=== PATIENT | female | born 1980 | race Caucasian/White ===

== ENCOUNTER 2017-01-14 06:30 | Emergency (ER) | payer MEDICARE ==
[~2017-01-14] VITALS: Ht 170.2 cm; Wt 62.3 kg
[2017-01-14 06:35] VITALS: BP 125/85; PULSE 104; RESP 16; TEMP 98.3; O2SAT 97
[2017-01-14] MEDS ORDERED: CLON1TAB PO (07:03)
[2017-01-14] MEDS ORDERED: MORP1TAB25 PO (07:03)
[2017-01-14] MEDS ORDERED: OXYC30TA PO (07:03)
[2017-01-14] MEDS ORDERED: BENA25CA4 PO (07:33)
[2017-01-14] MEDS ORDERED: IVER5TAB PO (07:33)
[2017-01-14] MEDS ORDERED: PERM5CRE11 TOPICAL (07:33)
--- NOTE | 2017-01-14 07:33 | PD ---
HPI Chief Complaint: Skin Problem Time Seen by Provider: 07:22 Travel History International Travel<30 days: No Contact w/Intl Traveler<30days: No Traveled to known affect area: No History of Present Illness HPI 36-year-old female patient presents to the ER today, states that 3 days ago she had stayed at [address] for a constitution party and after that she started having multiple areas of itching, thinks that she sees worms coming out of them. She has excoriations all over her body. They're mostly concentrated on the legs and arms. She denies any trouble breathing, or any other issues. She thinks that her housemates has also had some similar issues. She tries to show me "worms" on the paper towels but I am not able to see any. Modifying Factors: None Associated Signs & Symptoms: Itching all over the body, questionable worms Risk Factors: None PFSH Past Medical History Tetanus Vaccination: Unknown Influenza Vaccination: No ?: Not LMP: 01/10/2017 Social History Alcohol Use: Yes (Socially) Tobacco Use: Yes (1ppd) Substance Use: Yes ("ICE" 2-3 days ago) Allergies-Medications (Allergen,Severity, Reaction): Coded Allergies: No Known Allergies (Unverified , 01/14/17) Reported Meds & Prescriptions Reported Meds & Active Scripts Active Reported Morphine ER (Morphine Sulfate) 30 Mg Tab 30 Mg PO Q8H Oxycodone (Oxycodone HCl) 30 Mg Tab 30 Mg PO Q6H PRN Clonazepam 1 Mg Tab 1 Mg PO TID Review of Systems Except as stated in HPI: all other systems reviewed are Neg Physical Exam Narrative GENERAL: Well-developed white female patient in mild distress. Awake and oriented 3. SKIN: Focused skin assessment warm/dry. Multiple areas of excoriations with scabbing of the arms and legs. HEAD: Atraumatic. Normocephalic. EYES: Pupils equal and round. No scleral icterus. No injection or drainage. ENT: No nasal bleeding or discharge. Mucous membranes pink and moist. NECK: Trachea midline. No JVD. CARDIOVASCULAR: Regular rate and rhythm. No murmur appreciated. RESPIRATORY: No accessory muscle use. Clear to auscultation. Breath sounds equal bilaterally. GASTROINTESTINAL: Abdomen soft, non-tender, nondistended. Hepatic and splenic margins not palpable. MUSCULOSKELETAL: No obvious deformities. No clubbing. No cyanosis. No edema. NEUROLOGICAL: Awake and alert. No obvious cranial nerve deficits. Motor grossly within normal limits. Normal speech. PSYCHIATRIC: Appropriate mood and affect; insight and judgment normal. Data Data Last Documented VS Vital Signs Date Time Temp Pulse Resp B/P Pulse Ox O2 Delivery O2 Flow Rate FiO2 01/14/17 06:35 98.3 104 16 125/85 97 MDM Medical Decision Making Medical Screen Exam Complete: Yes Emergency Medical Condition: Yes Medical Record Reviewed: Yes Differential Diagnosis Rash, itchinessscabies versus parasitic skin infections versus methamphetamine related side effects Narrative Course At this point, considering the history, it is quite possible she may have some underlying scabies and my plan would be to treat her for that. Patient states that she had pulled out some kind of white worm from under her skin. I will also treat her with antiparasitic medications and symptomatically relief for itchiness. We will have her follow-up with primary care physician. Return for any worsening in symptoms as needed. The plan has been discussed with the patient and she states understanding. Diagnosis Primary Impression: Scabies Med/Other Pt SpecificInfo: Prescription(s) given Scripts Ivermectin 3 Mg Tab12 Mg PO ONCE #1 Prov:Bro Pereyra MD 01/14/17 Diphenhydramine HCl (Benadryl Allergy)25 Mg Cap25 Mg PO Q6HR PRN (ITCHING) #30 Prov:Bro Pereyra MD 01/14/17 Permethrin Topical (Elimite Topical)5% Cream1 Applic TOPICAL ONCE #1 TUBE Ref 0 Prov:Bro Pereyra MD 01/14/17 Disposition: 01 DISCHARGE HOME Condition: Stable Bro Pereyra MD Jan 14, 2017 07:33
[2017-01-14] MEDS ORDERED: BACT800T5 PO (07:51)
== END 2017-01-14 08:10 | disposition home or self-care (01) ==
LOC: PHED 06:30
DX: B86 Scabies (principal); F17.210 Nicotine dependence, cigarettes, uncomplicated
CPT/HCPCS: 99284

== ENCOUNTER 2017-01-14 18:44 | Observation (INO) | payer MEDICARE ==
[~2017-01-14] VITALS: Ht 170.2 cm; Wt 62.3 kg
[~2017-01-14 18:44] MED LIST: BACT800T5 PO; BENA25CA4 PO; CLON1TAB PO; IVER5TAB PO; MORP1TAB25 PO; OXYC30TA PO; PERM5CRE11 TOPICAL
[2017-01-14 19:01] VITALS: BP 139/85; PULSE 121; RESP 16; TEMP 98.2; O2SAT 100
[2017-01-14] MEDS ORDERED: SODIUM CHLORIDE 0.9% FLUSH 10 ML FLUSH IVF PRN ×2 (19:30→23:45)
[2017-01-14 19:34] VITALS: BP 120/80; PULSE 107; RESP 18; O2SAT 100
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
--- NOTE | 2017-01-14 20:12 | RADHPO ---
EXAM DATE/TIME: 01/14/2017 19:43 [facility] COMPARISON: No previous studies available for comparison. INDICATIONS : Chest pain. MEDICAL HISTORY : None. SURGICAL HISTORY : None. ENCOUNTER: Initial ACUITY: 1 day PAIN SCORE: 2/10 LOCATION: Bilateral chest FINDINGS: A single view of the chest demonstrates the lungs to be symmetrically aerated without evidence of mas s, infiltrate or effusion. The cardiomediastinal contours are unremarkable. Osseous structures are intact. CONCLUSION: No evidence of acute cardiopulmonary disease. Shahid Maradiaga MD on January 14, 2017 at 20:10 Board Certified Radiologist. This report was verified electronically.
[2017-01-14 21:20] LABS: BASOPHIL # 0.1 TH/MM3 (0-0.2); BASOPHIL % 1.7 % (0.0-2.0); EOSINOPHIL # 0.1 TH/MM3 (0-0.4); EOSINOPHIL % 1.1 % (0.0-4.0); HEMATOCRIT 38.6 % (35.0-46.0); HEMO FLAGS DIFF FINAL; LYMPH % 35.8 % (9.0-44.0); LYMPHOCYTE # 2.7 TH/MM3 (1.0-4.8); MEAN CORPUSCULAR HEMOGLOBIN 29.9 PG (27.0-34.0); MEAN CORPUSCULAR HGB CONC 33.2 % (32.0-36.0); MONO % 7.9 % (0.0-8.0); NEUT % 53.5 % (16.0-70.0); PLATELET COUNT 254 TH/MM3 (150-450); RED BLOOD COUNT 4.29 MIL/MM3 (4.00-5.30); RED CELL DISTRIBUTION WIDTH 14.7 % (11.6-17.2); WHITE BLOOD COUNT 7.5 TH/MM3 (4.0-11.0)
[2017-01-14 21:34] LABS: APTT (PATIENT) 24.3 SEC (24.3-30.1); PROTHROMBIN TIME - PATIENT 11.4 SEC (9.8-11.6)
[2017-01-14 21:39] VITALS: BP 113/70; PULSE 92; RESP 18; O2SAT 98
[2017-01-14 21:44] VITALS: BP 113/70; PULSE 92; RESP 18; O2SAT 100
[2017-01-14 21:45] LABS: BARBITURATES, URINE NEG (NEG)
[2017-01-14 21:54] LABS: AMPHETAMINE, URINE POS (NEG)
[2017-01-14 21:55] LABS: COCAINE, URINE POS (NEG)
[2017-01-14 22:06] LABS: ALKALINE PHOSPHATASE 92 U/L (45-117); ALT (GPT) 27 U/L (10-53); ANION GAP 9 MEQ/L (5-15); AST (GOT) 21 U/L (15-37); BETA HCG QUANT LESS THAN 1 MIU/ML (0-5); BICARBONATE 25.4 MEQ/L (21.0-32.0); BLOOD UREA NITROGEN 12 MG/DL (7-18); CHLORIDE 108 MEQ/L (98-107); GLOMERULAR FILTRATION RATE 62 ML/MIN (>89); SODIUM (NA) 142 MEQ/L (136-145); TOTAL BILIRUBIN ADULT 0.4 MG/DL (0.2-1.0)
[2017-01-14 22:08] LABS: POTASSIUM 2.8 MEQ/L (3.5-5.1)
[2017-01-14] MEDS ORDERED: POTASSIUM CHLOR 10 MEQ PREMIX 100 ML IV ONE (22:15)
[2017-01-14] MEDS ORDERED: SODIUM CHLORID 0.9% 500 ML INJ 500 ML IV ONE (22:15)
[2017-01-14] MEDS ORDERED: POTASSIUM CHLORIDE 20 MEQ CONTROLLED RELEASE TAB PO ONE (22:15)
[2017-01-14] MEDS ORDERED: KETOROLAC TROMETHAMINE 30 MG/ML (IVP) VIAL IV PUSH ONE (22:15)
[2017-01-14] MEDS ORDERED: ASPIRIN 81 MG CHEW TAB CHEW ONE (22:45)
[2017-01-14 23:20] VITALS: BP 118/75; PULSE 91; RESP 18; O2SAT 100
[2017-01-14 23:50] VITALS: O2SAT 99
--- NOTE | 2017-01-15 00:02 | PD ---
Physical Exam Date Seen by Provider: Jan 14, 2017 Time Seen by Provider: 23:52 Narrative Accepted in transfer of care from [place] GENERAL: Well-developed well-nourished female in no acute distress no respiratory distress SKIN: Warm and dry. Diffuse various aged track gibbs and pustules or papules with and without scabbing. Excoriations. HEAD: Normocephalic. EYES: No scleral icterus. No injection or drainage. NECK: Supple, trachea midline. No JVD or lymphadenopathy. CARDIOVASCULAR: Regular rate and rhythm without murmurs, gallops, or rubs. No murmur to auscultation. RESPIRATORY: Breath sounds equal bilaterally. No accessory muscle use. GASTROINTESTINAL: Abdomen soft, non-tender, nondistended. MUSCULOSKELETAL: No cyanosis, or edema. BACK: Nontender without obvious deformity. No CVA tenderness. Data Data Last Documented VS Vital Signs Date Time Temp Pulse Resp B/P Pulse Ox O2 Delivery O2 Flow Rate FiO2 01/14/17 21:44 92 18 113/70 100 Room Air 01/14/17 19:01 98.2 Orders Electrocardiogram (01/14/17 19:23) Complete Blood Count With Diff (01/14/17 19:23) Comprehensive Metabolic Panel (01/14/17 19:23) Prothrombin Time / Inr (Pt) (01/14/17 19:23) Act Partial Throm Time (Ptt) (01/14/17 19:23) Troponin I (01/14/17 19:23) Chest, Single Ap (01/14/17 19:23) Ecg Monitoring (01/14/17 19:23) Bilateral Bp Monitoring (01/14/17 19:23) Iv Access Insert/Monitor (01/14/17 19:23) Oximetry (01/14/17 19:23) Sodium Chloride 0.9% Flush (Ns Flush) (01/14/17 19:30) Drug Screen, Random Urine (01/14/17 19:23) Ed Urine Pregnancytest Poc (01/14/17 19:23) Beta Hcg (Quant/Titer) (01/14/17 19:23) Potassium Chloride (Kcl) (01/14/17 22:15) Potassium Chlor 10 Meq Premix (Kcl 10 Me (01/14/17 22:15) Ketorolac Inj (Toradol Inj) (01/14/17 22:15) Sodium Chlorid 0.9% 500 Ml Inj (Ns 500 M (01/14/17 22:15) Aspirin Chew (Aspirin Chew) (01/14/17 22:45) Admit Order (Ed Use Only) (01/14/17 ) ^ Saline Lock (01/14/17 23:45) Resp Oxygen Aftab C Titrat 1-4 L (01/14/17 ) Notify Dr: Other (01/14/17 23:45) Sodium Chloride 0.9% Flush (Ns Flush) (01/15/17 09:00) Sodium Chloride 0.9% Flush (Ns Flush) (01/14/17 23:45) Labs Laboratory Tests Test 01/14/17 01/14/17 21:00 21:20 White Blood Count 7.5 TH/MM3 Red Blood Count 4.29 MIL/MM3 Hemoglobin 12.8 GM/DL Hematocrit 38.6 % Mean Corpuscular Volume 90.0 FL Mean Corpuscular Hemoglobin 29.9 PG Mean Corpuscular Hemoglobin 33.2 % Concent Red Cell Distribution Width 14.7 % Platelet Count 254 TH/MM3 Mean Platelet Volume 8.8 FL Neutrophils (%) (Auto) 53.5 % Lymphocytes (%) (Auto) 35.8 % Monocytes (%) (Auto) 7.9 % Eosinophils (%) (Auto) 1.1 % Basophils (%) (Auto) 1.7 % Neutrophils # (Auto) 4.0 TH/MM3 Lymphocytes # (Auto) 2.7 TH/MM3 Monocytes # (Auto) 0.6 TH/MM3 Eosinophils # (Auto) 0.1 TH/MM3 Basophils # (Auto) 0.1 TH/MM3 CBC Comment DIFF FINAL Differential Comment Prothrombin Time 11.4 SEC Prothromb Time International 1.0 RATIO Ratio Activated Partial 24.3 SEC Thromboplast Time Sodium Level 142 MEQ/L Potassium Level 2.8 MEQ/L Chloride Level 108 MEQ/L Carbon Dioxide Level 25.4 MEQ/L Anion Gap 9 MEQ/L Blood Urea Nitrogen 12 MG/DL Creatinine 1.00 MG/DL Estimat Glomerular Filtration 62 ML/MIN Rate Random Glucose 74 MG/DL Calcium Level 8.8 MG/DL Total Bilirubin 0.4 MG/DL Aspartate Amino Transf 21 U/L (AST/SGOT) Alanine Aminotransferase 27 U/L (ALT/SGPT) Alkaline Phosphatase 92 U/L Troponin I LESS THAN 0.02 NG/ML Total Protein 7.2 GM/DL Albumin 3.6 GM/DL Human Chorionic Gonadotropin, LESS THAN 1 Quant MIU/ML Urine Opiates Screen POS Urine Barbiturates Screen NEG Urine Amphetamines Screen POS Urine Benzodiazepines Screen NEG Urine Cocaine Screen POS Urine Cannabinoids Screen POS MDM Medical Record Reviewed: Yes Supervised Visit with JOSELUIS: Yes Interpretation(s) Vital Signs Date Time Temp Pulse Resp B/P Pulse Ox O2 Delivery O2 Flow Rate FiO2 01/14/17 21:44 92 18 113/70 100 Room Air 01/14/17 21:39 92 18 113/70 98 Room Air 01/14/17 19:34 107 18 120/80 100 Room Air 01/14/17 19:01 98.2 121 16 139/85 100 Last Impressions Chest X-Ray 01/14/171922 Signed Impressions: Service Date/Time: Saturday, January 14, 2017 19:43 - CONCLUSION: No evidence of acute cardiopulmonary disease. Shahid Maradiaga MD CBC & BMP Diagram 01/14/17 21:00 Differential Diagnosis Chest pain, atypical chest pain, zoster, abscess, coronary spasm, PE, pneumonia , polysubstance abuse, chronic pain syndrome, rib fracture Narrative Course IV access obtained specimens collected and sent for resulting EKG performed reveals patient to be in sinus tachycardia no acute ST elevation or injury pattern change noted; chest x-ray no lobar infiltrate CBC is automated differential values in normal range Chemistries remarkable for hypokalemia potassium of 2.8; cardiac enzymes within normal limits urine drug screen abnormal for opiates, amphetamines, cocaine, and cannabis--- patient denies any cocaine use Plan will be to observation admission for chest pain with ingestion of cocaine for serial cardiac enzymes as well as correction of serum potassium; patient's case discussed with [facility] physician no signs of sepsis at this time Sepsis Criteria SIRS Criteria (2 or more): Heart rate over 90 Condition: Stable Stephanie Contreras MD Jan 15, 2017 00:02
[2017-01-15] MEDS ORDERED: MORPHINE SULFATE 4 MG/ML INJ IV PRN (00:45)
[2017-01-15] MEDS ORDERED: ACETAMINOPHEN/HYDROcodone 325 MG/7.5 MG TAB PO PRN (00:45)
[2017-01-15] MEDS ORDERED: NITROGLYCERIN 0.4 MG SL 25 TABS/BTL SL PRN (00:45)
[2017-01-15] MEDS ORDERED: ACETAMINOPHEN 500 MG CPLT PO PRN (00:45)
[2017-01-15 01:57] VITALS: BP 111/77; PULSE 87; RESP 18; TEMP 97.7; O2SAT 99
[2017-01-15] MEDS ORDERED: HEPARIN SODIUM - SQ 10,000 UNITS/ML VIAL SQ SCH (06:00)
[2017-01-15 08:00] VITALS: BP 99/63; PULSE 73; RESP 16; TEMP 98.6; O2SAT 94
[2017-01-15 08:45] VITALS: O2SAT 94
[2017-01-15] MEDS ORDERED: SODIUM CHLORIDE 0.9% FLUSH 10 ML FLUSH IV FLUSH SCH (09:00)
[2017-01-15] MEDS ORDERED: ASPIRIN 325 MG TAB PO SCH (09:00)
[2017-01-15 10:05] LABS: AUTOMATED NEUTROPHIL # 3.9 TH/MM3 (1.8-7.7); BASOPHIL # 0.1 TH/MM3 (0-0.2); BASOPHIL % 1.2 % (0.0-2.0); EOSINOPHIL # 0.1 TH/MM3 (0-0.4); EOSINOPHIL % 1.7 % (0.0-4.0); HEMATOCRIT 36.1 % (35.0-46.0); HEMO FLAGS DIFF FINAL; LYMPH % 35.4 % (9.0-44.0); LYMPHOCYTE # 2.5 TH/MM3 (1.0-4.8); MEAN CELL VOLUME 91.4 FL (80.0-100.0); MEAN CORPUSCULAR HEMOGLOBIN 30.8 PG (27.0-34.0); MEAN CORPUSCULAR HGB CONC 33.7 % (32.0-36.0); MONO % 8.8 % (0.0-8.0); NEUT % 52.9 % (16.0-70.0); PLATELET COUNT 267 TH/MM3 (150-450); RED BLOOD COUNT 3.95 MIL/MM3 (4.00-5.30); RED CELL DISTRIBUTION WIDTH 14.6 % (11.6-17.2); WHITE BLOOD COUNT 7.2 TH/MM3 (4.0-11.0)
[2017-01-15 10:20] LABS: POTASSIUM 3.5 MEQ/L (3.5-5.1)
--- NOTE | 2017-01-15 10:33 | HHI.HP ---
[facility] Primary Care Physician No Primary Care Physician Admission Diagnosis chest pain; hypokalemia; cocaine abuse Diagnoses: (1) Hypokalemia Diagnosis: Principal (2) Left axillary pain Diagnosis: Secondary (3) Chronic back pain Diagnosis: Secondary (4) Anxiety Diagnosis: Secondary (5) Polysubstance abuse Diagnosis: Secondary Chief Complaint: Left axilla pain Travel History International Travel<30 Days: No Contact w/Intl Traveler <30 Da: No Traveled to Known Affected Are: No History of Present Illness Written by Britton Ugalde, acting as scribe for Dr. Padilla on 01/15/17 at 10: 25. 36-year-old female with known history of anxiety, chronic back pain, chronic axilla pain, polysubstance abuse who presented to the hospital because of unknown reasons. Patient did not indicate why she came to the hospital yesterday. She states that she does have left axilla pain which was indicated the emergency department note, however that is chronic and would not indulge how long the pain has been there or how she developed a pain. She denies any chest pain, shortness of breath, dyspnea, nausea, vomiting, lightheadedness, dizziness. ER documentation indicates that she is having pain in her axilla for 1 year because she had needle stuck in her axilla and it was indicated that it was removed. At the time evaluating the patient this morning she is denying any symptoms or any complaints. Workup in emergency department did indicate hypokalemia which was replaced at that time. Awaiting follow-up labs for further evaluation. Review of Systems Constitutional: DENIES: Diaphoretic episodes, Fatigue, Fever, Weight gain, Weight loss, Chills, Dizziness, Change in appetite, Night Sweats Eyes: DENIES: Blurred vision, Diplopia, Eye inflammation, Eye pain, Vision loss , Photosensitivity, Double Vision Ears, nose, mouth, throat: DENIES: Tinnitus, Hearing loss, Vertigo, Nasal discharge, Oral lesions, Throat pain, Hoarseness, Ear Pain, Running Nose, Epistaxis, Sinus Pain, Toothache, Odynophagia Respiratory: DENIES: Apneas, Cough, Snoring, Wheezing, Hemoptysis, Sputum production, Shortness of breath Cardiovascular: DENIES: Chest pain, Palpitations, Syncope, Dyspnea on Exertion , PND, Lower Extremity Edema, Orthopnea, Claudication Gastrointestinal: DENIES: Abdominal pain, Black stools, Bloody stools, Constipation, Diarrhea, Nausea, Vomiting, Difficulty Swallowing, Anorexia Genitourinary: DENIES: Abnormal vaginal bleeding, Dysmenorrhea, Dyspareunia, Sexual dysfunction, Urinary frequency, Urinary incontinence, Urgency, Hematuria , Dysuria, Nocturia, Vaginal discharge Musculoskeletal: COMPLAINS OF: Back pain, DENIES: Joint pain, Muscle aches, Stiffness, Joint Swelling, Neck pain Neurologic: DENIES: Abnormal gait, Headache, Localized weakness, Paresthesias, Seizures, Speech Problems, Tremor, Poor Balance Psychiatric: COMPLAINS OF: Anxiety, DENIES: Confusion, Mood changes, Depression Past Family Social History Past Medical History Chronic back pain Chronic axilla pain Anxiety Past Surgical History Tubal ligation Lumbar spine surgery Reported Medications Reported Meds & Active Scripts Active Bactrim DS (Sulfamethoxazole-Trimethoprim) 800-160 Mg Tab 1 Tab PO BID Ivermectin 3 Mg Tab 12 Mg PO ONCE Benadryl Allergy (Diphenhydramine HCl) 25 Mg Cap 25 Mg PO Q6HR PRN Elimite Topical (Permethrin) 5% Cream 1 Applic TOPICAL ONCE Reported Morphine ER (Morphine Sulfate) 30 Mg Tab 30 Mg PO Q8H Oxycodone (Oxycodone HCl) 30 Mg Tab 30 Mg PO Q6H PRN Clonazepam 1 Mg Tab 1 Mg PO TID Allergies: Coded Allergies: No Known Allergies (Unverified , 01/14/17) Family History Reviewed and significant for father having epilepsy. Denies any family history of heart disease, lung disease, diabetes, cancer, stroke Social History Patient smoked one pack a cigarettes a day since she was 12 years old. Patient is positive for opiates, amphetamines, cocaine, cannabinoids. However patient denies using all his medications. She states that she did use some drugs of the day but she did not know what was exactly in them. Patient denies any alcohol use Physical Exam Vital Signs Vital Signs Date Time Temp Pulse Resp B/P Pulse Ox O2 Delivery O2 Flow Rate FiO2 01/15/17 08:45 94 21 01/15/17 08:00 98.6 73 16 99/63 94 01/15/17 01:57 97.7 87 18 111/77 99 01/14/17 23:50 99 21 01/14/17 23:30 16 01/14/17 23:20 91 18 118/75 100 Room Air 01/14/17 21:44 92 18 113/70 100 Room Air 01/14/17 21:39 92 18 113/70 98 Room Air 01/14/17 19:34 107 18 120/80 100 Room Air 01/14/17 19:01 98.2 121 16 139/85 100 Physical Exam GENERAL: Well-developed, well-nourished, in no acute distress. alert and orientated HEENT: Head is normocephalic without any lesions or masses noted. Facial features are symmetric. Eyes: Pupils equal round reactive to light. Extraocular muscles are intact. Conjunctivae were clear. Oropharyngeal: Pharynx without any erythema edema. Tongue is midline without deviation. Buccal mucosa is moist without any masses or lesions NECK: Supple without any masses. Trachea midline no deviation. No JVD, no bruits are appreciated CARDIAC: Regular rhythm, regular rate. S1/S2 are heard. No murmurs gallops or rubs. LUNGS: Clear to auscultation bilaterally. No wheeze, rhonchi or rales. No use of accessory muscles on inspiration or expiration. ABDOMEN: Soft, nontender. Nondistended. Bowel sounds heard in all 4 quadrants. No organomegaly or masses. Negative rebound, negative guarding EXTREMITIES: No edema, pulses are equal bilaterally. No cyanosis or clubbing NEUROLOGY: Mood and affect appear appropriate. Cranial nerves II through XII grossly intact. Muscle strength 5/5 in upper and lower extremities bilaterally. Deep tendon reflexes are 2+ in upper and lower extremities bilaterally. Laboratory Laboratory Tests Test 01/14/17 01/14/17 01/15/17 21:00 21:20 09:58 White Blood Count 7.5 7.2 Red Blood Count 4.29 3.95 Hemoglobin 12.8 12.1 Hematocrit 38.6 36.1 Mean Corpuscular Volume 90.0 91.4 Mean Corpuscular Hemoglobin 29.9 30.8 Mean Corpuscular Hemoglobin 33.2 33.7 Concent Red Cell Distribution Width 14.7 14.6 Platelet Count 254 267 Mean Platelet Volume 8.8 8.7 Neutrophils (%) (Auto) 53.5 52.9 Lymphocytes (%) (Auto) 35.8 35.4 Monocytes (%) (Auto) 7.9 8.8 Eosinophils (%) (Auto) 1.1 1.7 Basophils (%) (Auto) 1.7 1.2 Neutrophils # (Auto) 4.0 3.9 Lymphocytes # (Auto) 2.7 2.5 Monocytes # (Auto) 0.6 0.6 Eosinophils # (Auto) 0.1 0.1 Basophils # (Auto) 0.1 0.1 CBC Comment DIFF FINAL DIFF FINAL Differential Comment Prothrombin Time 11.4 Prothromb Time International 1.0 Ratio Activated Partial 24.3 Thromboplast Time Sodium Level 142 Potassium Level 2.8 Chloride Level 108 Carbon Dioxide Level 25.4 Anion Gap 9 Blood Urea Nitrogen 12 Creatinine 1.00 Estimat Glomerular Filtration 62 Rate Random Glucose 74 Calcium Level 8.8 Total Bilirubin 0.4 Aspartate Amino Transf 21 (AST/SGOT) Alanine Aminotransferase 27 (ALT/SGPT) Alkaline Phosphatase 92 Troponin I LESS THAN 0.02 Total Protein 7.2 Albumin 3.6 Human Chorionic Gonadotropin, LESS THAN 1 Quant Urine Opiates Screen POS Urine Barbiturates Screen NEG Urine Amphetamines Screen POS Urine Benzodiazepines Screen NEG Urine Cocaine Screen POS Urine Cannabinoids Screen POS Result Diagram: 01/15/17 0958 01/14/172099 Imaging Last Impressions Chest X-Ray 01/14/171922 Signed Impressions: Service Date/Time: Saturday, January 14, 2017 19:43 - CONCLUSION: No evidence of acute cardiopulmonary disease. Shahid Maradiaga MD Assessment and Plan Assessment and Plan Left axilla pain, chronic Patient denies any chest pain, nausea, vomiting, diaphoresis, shortness of breath, dyspnea, lightheadedness, dizziness, risk factors would only include tobacco use for any cardiac etiology or angina variant Thus far cardiac enzymes were unremarkable Continue pain control -Discussed with patient that she needs to follow with primary care doctor to get this looked into. Hypokalemia, resolved Replaced emergency department Polysubstance abuse Drug screen positive for opiates, amphetamines, cocaine, cannabinoids Patient was counseled on cessation Anxiety Continue home medications Chronic back pain Patient continue follow-up with her primary medical doctor for management DVT prevention Subcutaneous heparin Discharge disposition Discharge home in stable condition Activity: Ad flavia. Diet: Regular diet Medications per medication reconciliation Follow-up with primary medical doctor in one week Discussed Condition With patient, nurse. This note was transcribed by scribe [Britton Ugalde]. I, Dr. Venancio Padilla personally performed the history, physical exam, and medical decision making; and confirmed the accuracy of the information in the transcribed note. Authenticated by Dr. Venancio Padilla on 01/15/17 at 18:16. Problem Qualifiers (1) Chronic back pain: Qualified Code: M54.9 - Chronic back pain, unspecified back location, unspecified back pain laterality Britton Ugalde Jan 15, 2017 10:33 Venancio Padilla MD Jan 15, 2017 18:16
--- NOTE | 2017-01-15 10:37 | HHI.DCPOC ---
Discharge Care Plan Diagnosis: (1) Left axillary pain (2) Polysubstance abuse (3) Hypokalemia Goals to Promote Your Health * To prevent worsening of your condition and complications * To maintain your health at the optimal level Directions to Meet Your Goals Take your medications as prescribed Follow your dietary instruction Follow activity as directed Keep your appointments as scheduled Take your immunizations and boosters as scheduled If your symptoms worsen call your PCP, if no PCP go to Urgent Care Center or Emergency Room Smoking is Dangerous to Your Health. Avoid second hand smoke Call the 24-hour hour crisis hotline for domestic abuse at Britton Ugalde Jan 15, 2017 10:37
[2017-01-15 11:31] LABS: BICARBONATE 23.9 MEQ/L (21.0-32.0)
[2017-01-15 12:03] LABS: CREATINE KINASE 176 U/L (26-192)
--- NOTE | 2017-01-15 21:59 | EKG ---
Date Performed: 01/14/2017 Time Performed: 19:48:02 PTAGE: 36 years EKG: Sinus rhythm . Normal ECG NO PREVIOUS TRACING DOCTOR: Sharon Roth Interpretating Date/Time 01/15/2017 21:56:52
--- NOTE | 2017-01-15 22:00 | EKG ---
Date Performed: 01/15/2017 Time Performed: 03:04:06 PTAGE: 36 years EKG: Sinus arrhythmia Since previous tracing, no significant change noted Normal ECG PREVIOUS TRACING : 01/14/2017 19.48 DOCTOR: Sharon Roth Interpretating Date/Time 01/15/2017 21:57:00
== END 2017-01-15 15:20 | disposition home health service (06) ==
LOC: PHED 18:44 → PHEDA 23:46 → PH3A 01-15 01:05
PROVIDERS: ADMIT Internal Medicine; ATTEND Internal Medicine
DX: M79.622 Pain in left upper arm (principal); E87.6 Hypokalemia; G89.29 Other chronic pain; M54.9 Dorsalgia, unspecified; F41.9 Anxiety disorder, unspecified; F15.10 Other stimulant abuse, uncomplicated; F14.10 Cocaine abuse, uncomplicated; F12.10 Cannabis abuse, uncomplicated; F11.10 Opioid abuse, uncomplicated; F17.210 Nicotine dependence, cigarettes, uncomplicated
CPT/HCPCS: 71010; 80048; 80053; 80307; 82550; 84484; 84702; 84703; 85025; 85610; 85730; 93005; 96361; 96372; 96374; 99285; G0378; J1644; J1885; J3480; J7040

== ENCOUNTER 2017-05-15 11:26 | Emergency (ER) | payer MEDICARE ==
[~2017-05-15] VITALS: Ht 170.2 cm; Wt 56.5 kg
[2017-05-15 11:28] VITALS: BP 109/65; PULSE 125; RESP 20; TEMP 97.9; O2SAT 99
[2017-05-15 11:54] VITALS: BP 118/70; PULSE 102; RESP 16; TEMP 98.2; O2SAT 100
[2017-05-15] MEDS ORDERED: SULFAMETHOXAZOLE-TRIMETHOPRIM DS 800-160 MG TAB PO ONE (12:30)
[2017-05-15] MEDS ORDERED: BACT800T5 PO (12:34)
--- NOTE | 2017-05-15 12:35 | PD ---
HPI Chief Complaint: Skin Problem Time Seen by Provider: 12:08 Travel History International Travel<30 days: No Contact w/Intl Traveler<30days: No Traveled to known affect area: No History of Present Illness HPI So 36 year-old woman who presents to the emergency department complaining of right ear pain and swelling purulent drainage. Since about 4 days ago striking pain there. Yesterday she was pressing on the area of fullness and expressed a significant amount of purulent drainage. She states she does occasionally use Albaro-pen in the area. History Past Medical History Medical History: Denies Significant Hx LMP: 05/09/17 Social History Alcohol Use: Yes (rarely) Tobacco Use: Yes (1/ 2 ppd) Allergies-Medications (Allergen,Severity, Reaction): Coded Allergies: No Known Allergies (Unverified , 01/14/17) Reported Meds & Prescriptions Reported Meds & Active Scripts Active No Active Prescriptions or Reported Medications Review of Systems Except as stated in HPI: all other systems reviewed are Neg Physical Exam Narrative GENERAL: Well-appearing 36 year-old woman HEENT: The right ear, in the inferior aspect of the most external part of the auditory canal, near the antihelix and the tragus. There is a small nodule there but no significant fluctuance or erythema or purulent drainage. There is mild amount of tenderness. The rest the external auditory canals appears normal. TMs normal. SKIN: Warm and dry. CARDIOVASCULAR: Warm and well perfused. RESPIRATORY: Normal rate and effort. MUSCULOSKELETAL: No deficits. NEUROLOGICAL: Awake and alert. No gross deficits. Data Data Last Documented VS Vital Signs Date Time Temp Pulse Resp B/P (MAP) Pulse Ox O2 Delivery O2 Flow Rate FiO2 05/15/17 11:54 98.2 102 16 118/70 (86) 100 Room Air Orders Orders Sulfamet-Trimeth Ds 800-160 Mg (Bactrim (05/15/17 12:30) MDM Medical Decision Making Medical Screen Exam Complete: Yes Emergency Medical Condition: Yes Differential Diagnosis Ear infection, soft tissue infection, other Narrative Course Medical decision-making new Is a 36 year-old woman presents to the emergency department with an infection in her right ear. It appears mostly drain. She should be on antibiotics. I don't see any evidence of mastoiditis or more sinister ear infection. Diagnosis Primary Impression: Ear infection Additional Instructions: Take antibiotics as prescribed. Follow-up with your primary doctor in the next 2-4 days. Return to the emergency department for any worsening pain redness swelling fevers or any other new or worsening symptoms. Med/Other Pt SpecificInfo: Prescription(s) given Scripts Sulfamethoxazole-Trimethoprim (Bactrim DS) 800-160 Mg Tab 1 TAB PO BID for Infection, #20 TAB 0 Refills Prov: Wayne Ann MD 05/15/17 Disposition: 01 DISCHARGE HOME Condition: Stable Wayne Ann MD May 15, 2017 12:34
[2017-05-15] MEDS ORDERED: FLUC150T PO (12:46)
== END 2017-05-15 12:59 | disposition home or self-care (01) ==
LOC: NEPD 11:26
DX: H66.91 Otitis media, unspecified, right ear (principal); F17.200 Nicotine dependence, unspecified, uncomplicated
CPT/HCPCS: 99283

== ENCOUNTER 2017-06-25 20:09 | Inpatient (IN) | payer MEDICARE ==
[~2017-06-25] VITALS: Ht 170.2 cm; Wt 63.5 kg
[~2017-06-25 20:09] MED LIST changes: -BENA25CA4 PO; -CLON1TAB PO; +FLUC150T PO; -IVER5TAB PO; -MORP1TAB25 PO; -OXYC30TA PO; -PERM5CRE11 TOPICAL
[2017-06-25 20:12] VITALS: BP 118/60; PULSE 123; RESP 18; TEMP 99.1; O2SAT 99
[2017-06-25] MEDS ORDERED: SODIUM CHLOR 0.9% 1000 ML INJ 1,000 ML IV ONE (21:53)
--- NOTE | 2017-06-25 22:06 | RADRPT ---
EXAM DATE/TIME: 06/25/2017 20:52 [facility] COMPARISON: CHEST SINGLE AP, January 14, 2017, 19:43. INDICATIONS : Chest pain, shortness of breath. MEDICAL HISTORY : Smoker. Pneumonia. SURGICAL HISTORY : Fusion, lumbar. ENCOUNTER: Initial ACUITY: 4 - 6 days PAIN SCORE: 8/10 LOCATION: Bilateral upper chest FINDINGS: The heart size is normal. There are 2 focal areas of increased density seen in the right upper lung m easuring 1.2 cm and in the right midlung measuring 1.3 cm. Left lung is grossly clear. No effusion is seen. Surgical hardware seen in the lumbar spine. CONCLUSION: 2 nodular areas seen in the right upper lung and right mid lung. These could be further evaluated wit h a CT examination the chest. Shahid Wood MD on June 25, 2017 at 22:02 Board Certified Radiologist. This report was verified electronically.
[2017-06-25] MEDS ORDERED: methylPREDNISolone SOD SUCC 125 MG/2 ML VIAL IV PUSH ONE (22:15)
[2017-06-25] MEDS ORDERED: KETOROLAC TROMETHAMINE 30 MG/ML (IVP) VIAL IV PUSH ONE (22:15)
--- NOTE | 2017-06-25 22:15 | PD ---
HPI Chief Complaint: Chest Pain Time Seen by Provider: 21:52 Travel History International Travel<30 days: No Contact w/Intl Traveler<30days: No Traveled to known affect area: No History of Present Illness HPI Patient is a 36-year-old female presents to the emergency department for evaluation of pleuritic chest pain and mild shortness of breath. Patient states she left AMA from [facility] today. She reports being diagnosed with pneumonia and endocarditis. She was admitted on Saturday to that facility. She states that on the Saturday prior to the admission, she began having fevers to 103.5 degrees, body aches and shortness of breath. Patient reports a history of IV drug use, she reports using 1 month ago. She states that she had back surgery several years ago which got her addicted to narcotics. She then moved to heroin. Patient states it's painful to breathe, she states the pain is a 6 out of 10 area she last received Tylenol at 11 AM this morning. PFS Past Medical History Arthritis: Yes Asthma: Yes (as a child) Anxiety: Yes Depression: Yes Cancer: No Cardiovascular Problems: Yes (ENDOCARDITIS) COPD: No Diminished Hearing: No Endocrine: No Genitourinary: No Immune Disorder: No Musculoskeletal: Yes Neurologic: No Reproductive: No Sleep Apnea: No Tubal Ligation: Yes Past Surgical History Abdominal Surgery: No Body Medical Devices: hardware in back Cardiac Surgery: No Ear Surgery: No Endocrine Surgery: No Eye Surgery: No Genitourinary Surgery: No Gynecologic Surgery: Yes (tubes tied) Oral Surgery: No Thoracic Surgery: No Social History Alcohol Use: Yes (rarely) Tobacco Use: Yes (1/ 2 ppd) Substance Use: Yes (marijuana) Allergies-Medications (Allergen,Severity, Reaction): Coded Allergies: No Known Allergies (Unverified , 01/14/17) Reported Meds & Prescriptions Reported Meds & Active Scripts Active Fluconazole 150 Mg Tab 150 Mg PO ONCE Bactrim DS (Sulfamethoxazole-Trimethoprim) 800-160 Mg Tab 1 Tab PO BID Review of Systems Except as stated in HPI: all other systems reviewed are Neg General / Constitutional: Positive: Fever, Chills HENT: No: Headaches Cardiovascular: Positive: Tachycardia, Dyspnea on exertion, No: Chest Pain or Discomfort Respiratory: Positive: Shortness of Breath, Pleuritic Pain Gastrointestinal: No: Nausea, Vomiting, Abdominal Pain Musculoskeletal: No: Myalgias Neurologic: No: Weakness, Dizziness, Focal Abnormalities Physical Exam Narrative GENERAL: Well-developed, well-nourished, alert female. Appears uncomfortable, in no acute distress. SKIN: Warm and dry. HEAD: Atraumatic. Normocephalic. EYES: Pupils equal and round. No scleral icterus. No injection or drainage. ENT: No nasal bleeding or discharge. Mucous membranes pink and moist. NECK: Trachea midline. No JVD. CARDIOVASCULAR: Tachycardic. RESPIRATORY: No accessory muscle use. Diminished throughout secondary to poor inspiratory effort. GASTROINTESTINAL: Abdomen soft, non-tender, nondistended. Hepatic and splenic margins not palpable. MUSCULOSKELETAL: Extremities without clubbing, cyanosis, or edema. No obvious deformities. NEUROLOGICAL: Awake and alert. No obvious cranial nerve deficits. Motor grossly within normal limits. Five out of 5 muscle strength in the arms and legs. Normal speech. PSYCHIATRIC: Appropriate mood and affect; insight and judgment normal. Data Data Last Documented VS Vital Signs Date Time Temp Pulse Resp B/P (MAP) Pulse Ox O2 Delivery O2 Flow Rate FiO2 06/25/17 22:42 93 16 100 Room Air 06/25/17 22:41 06/25/17 20:12 99.1 Orders Orders Sepsis Workup Initiated (06/25/17 ) Electrocardiogram (06/25/17 20:40) Complete Blood Count With Diff (06/25/17 20:40) Comprehensive Metabolic Panel (06/25/17 20:40) Prothrombin Time / Inr (Pt) (06/25/17 20:40) Act Partial Throm Time (Ptt) (06/25/17 20:40) Lactic Acid Sepsis Protocol (06/25/17 20:40) Ckmb (Isoenzyme) Profile (06/25/17 20:40) Troponin I (06/25/17 20:40) Urinalysis - C+S If Indicated (06/25/17 20:40) Blood Culture (06/25/17 20:40) Chest, Pa & Lat (06/25/17 20:40) Sepsis Workup Initiated (06/25/17 ) Sodium Chlor 0.9% 1000 Ml Inj (Ns 1000 M (06/25/17 21:53) Iv Access Insert/Monitor (06/25/17 21:53) Ecg Monitoring (06/25/17 21:53) Oximetry (06/25/17 21:53) Oxygen Administration (06/25/17 22:04) Ketorolac Inj (Toradol Inj) (06/25/17 22:15) Methylprednisolone So Succ Inj (Solumedr (06/25/17 22:15) Labs Laboratory Tests Test 06/25/17 22:00 [facility] Medical Decision Making Medical Screen Exam Complete: Yes Emergency Medical Condition: Yes Interpretation(s) Vital Signs Date Time Temp Pulse Resp B/P (MAP) Pulse Ox O2 Delivery O2 Flow Rate FiO2 06/25/17 20:12 99.1 123 18 118/60 (79) 99 Room Air Differential Diagnosis Pneumonia versus endocarditis versus sepsis versus metabolic abnormality versus other Narrative Course Patient presents emergency department after leaving [facility] today. She reports being diagnosed with endocarditis and pneumonia. She is tachycardic on arrival, labs and imaging ordered and pending. Patient placed on O2 at 2 L, Toradol and Solu-Medrol ordered. Medical records were requested from [facility]. Chest x-ray shows 2 nodular areas in the right upper lung and right mid lung. These could be evaluated with a CT scan of the chest. Will Defer further imaging until medical records are obtained. Care of patient transferred to Dr. Friend who will determine patient's disposition. Gabbie Condon Jun 25, 2017 22:15
[2017-06-25 22:41] VITALS: O2SAT 100
[2017-06-25 22:47] VITALS: BP 104/60; PULSE 96; RESP 16; O2SAT 100
[2017-06-25] MEDS ORDERED: PIPERACIL-TAZO 4.5 GM PREMIX 100 ML IV STA (22:52)
[2017-06-25] MEDS ORDERED: VANCOMYCIN INJ 1 MG in SODIUM CHLOR 0.9% 250 ML INJ 250 ML IV STA (22:52)
--- NOTE | 2017-06-25 23:00 | PD ---
Data Data Last Documented VS Vital Signs Date Time Temp Pulse Resp B/P (MAP) Pulse Ox O2 Delivery O2 Flow Rate FiO2 06/25/17 22:47 96 16 104/60 (75) 100 Room Air 06/25/17 20:12 99.1 Orders Orders Sepsis Workup Initiated (06/25/17 ) Electrocardiogram (06/25/17 20:40) Complete Blood Count With Diff (06/25/17 20:40) Comprehensive Metabolic Panel (06/25/17 20:40) Prothrombin Time / Inr (Pt) (06/25/17 20:40) Act Partial Throm Time (Ptt) (06/25/17 20:40) Lactic Acid Sepsis Protocol (06/25/17 20:40) Ckmb (Isoenzyme) Profile (06/25/17 20:40) Troponin I (06/25/17 20:40) Urinalysis - C+S If Indicated (06/25/17 20:40) Blood Culture (06/25/17 20:40) Chest, Pa & Lat (06/25/17 20:40) Sepsis Workup Initiated (06/25/17 ) Sodium Chlor 0.9% 1000 Ml Inj (Ns 1000 M (06/25/17 21:53) Iv Access Insert/Monitor (06/25/17 21:53) Ecg Monitoring (06/25/17 21:53) Oximetry (06/25/17 21:53) Oxygen Administration (06/25/17 22:04) Ketorolac Inj (Toradol Inj) (06/25/17 22:15) Methylprednisolone So Succ Inj (Solumedr (06/25/17 22:15) Vancomycin Inj (Vancomycin Inj) (06/25/17 22:52) Piperacil-Tazo 4.5 Gm Premix (Zosyn 4.5 (06/25/17 22:52) Admit Order (Ed Use Only) (06/26/17 00:23) Labs Laboratory Tests Test 06/25/17 22:00 White Blood Count 8.4 TH/MM3 Red Blood Count 4.09 MIL/MM3 Hemoglobin 11.7 GM/DL Hematocrit 35.9 % Mean Corpuscular Volume 88.0 FL Mean Corpuscular Hemoglobin 28.6 PG Mean Corpuscular Hemoglobin Concent 32.5 % Red Cell Distribution Width 15.1 % Platelet Count 158 TH/MM3 Mean Platelet Volume 9.7 FL Neutrophils (%) (Auto) 72.3 % Lymphocytes (%) (Auto) 21.1 % Monocytes (%) (Auto) 5.4 % Eosinophils (%) (Auto) 0.9 % Basophils (%) (Auto) 0.3 % Neutrophils # (Auto) 6.1 TH/MM3 Lymphocytes # (Auto) 1.8 TH/MM3 Monocytes # (Auto) 0.5 TH/MM3 Eosinophils # (Auto) 0.1 TH/MM3 Basophils # (Auto) 0.0 TH/MM3 CBC Comment AUTO DIFF Differential Total Cells Counted 100 Neutrophils % (Manual) 46 % Band Neutrophils % 35 % Lymphocytes % 16 % Monocytes % 1 % Eosinophils % 1 % Basophils % 1 % Neutrophils # (Manual) 6.8 TH/MM3 Differential Comment FINAL DIFF MANUAL Toxic Granulation 1+ Platelet Estimate NORMAL Platelet Morphology Comment ENLARGED Prothrombin Time 9.8 SEC Prothromb Time International Ratio 0.9 RATIO Activated Partial Thromboplast Time 21.2 SEC Blood Urea Nitrogen 8 MG/DL Creatinine 0.64 MG/DL Random Glucose 70 MG/DL Total Protein 7.7 GM/DL Albumin 3.2 GM/DL Calcium Level 8.8 MG/DL Alkaline Phosphatase 130 U/L Aspartate Amino Transf (AST/SGOT) 30 U/L Alanine Aminotransferase (ALT/SGPT) 65 U/L Total Bilirubin 0.4 MG/DL Sodium Level 140 MEQ/L Potassium Level 3.5 MEQ/L Chloride Level 107 MEQ/L Carbon Dioxide Level 22.1 MEQ/L Anion Gap 11 MEQ/L Estimat Glomerular Filtration Rate 104 ML/MIN Lactic Acid Level 2.5 mmol/L Total Creatine Kinase 92 U/L Troponin I LESS THAN 0.02 NG/ML [facility] Medical Record Reviewed: Yes Supervised Visit with JOSELUIS: No Interpretation(s) Last Impressions Chest X-Ray 06/25/172039 Signed Impressions: Service Date/Time: Sunday, June 25, 2017 20:52 - CONCLUSION: 2 nodular areas seen in the right upper lung and right mid lung. These could be further evaluated with a CT examination the chest. Shahid Wood MD Narrative Course During the course of the patients emergency department visit, the patients history, examination, and differential diagnosis were reviewed with the patient. The patient was placed on a bus driver/monitor with oximetry and frequent blood pressure monitoring. The patient had IV access obtained and blood work sent for analysis. The patient's case is checked out to me by Gabbie, the nurse practitioner at the conclusion of her shift, pending blood work and admission to the hospitalist service. The patient has a history of signing out AGAINST MEDICAL ADVICE from [facility] earlier today. The patient was admitted for 3 days at that facility related to pneumonia and a possible diagnosis of endocarditis as she does have a history of IV drug use. The patient was initially provided vancomycin 1 g IV, Zosyn IV, normal saline a 1 L IV fluid bolus. The patient was given Toradol 30 mg IV 1 for pain The patients laboratory studies were reviewed and remarkable for a white count of 8.4, hemoglobin 11.7, platelets 158 with 72.3 neutrophils manual differential reveals 35 bands and toxic granulation, CMP is remarkable for a glucose of 70, ALT 65, alkaline phosphatase 1:30, CPK 92, troponin I less than 0.02, albumin 3.2, lactic acid 2.5 which did decrease down to 0.8, PT 9.8, PTT 21.2, urinalysis is unremarkable. Radiology studies were reviewed and remarkable for a chest x-ray that shows 2 nodular areas seen in the right upper lung and right mid lung that could be further evaluated by CT scan of the chest. Gabbie did request records from [facility]. The patient reportedly did have a 2-D echo done earlier today. The patients results were discussed with the patient, including the plan of care. I explained that further testing and/ or monitoring is indicated based on the patients history, examination, and/ or laboratory findings. Therefore, I recommended admission for additional evaluation. The patient expressed understanding and was agreeable with this plan. The patient was admitted to the hospital in guarded condition and [facility] Physician Communication Physician Communication The patient's case including history, pertinent physical examination findings, and laboratory studies were discussed with Dr. Youssef. It was agreed that the [facility] Diagnosis Primary Impression: Bandemia Additional Impressions: Pneumonia Qualified Codes: J18.9 - Pneumonia, unspecified organism IVDU (intravenous drug user) Admitting Information Admitting Physician Requests: Admit Roro Friend MD Jun 25, 2017 23:00
[2017-06-25 23:17] LABS: ALKALINE PHOSPHATASE 130 U/L (45-117); TOTAL BILIRUBIN ADULT 0.4 MG/DL (0.2-1.0)
[2017-06-25 23:20] LABS: ALT (GPT) 65 U/L (10-53); ANION GAP 11 MEQ/L (5-15); AST (GOT) 30 U/L (15-37); BICARBONATE 22.1 MEQ/L (21.0-32.0); BLOOD UREA NITROGEN 8 MG/DL (7-18); CHLORIDE 107 MEQ/L (98-107); GLOMERULAR FILTRATION RATE 104 ML/MIN (>89); POTASSIUM 3.5 MEQ/L (3.5-5.1); SODIUM (NA) 140 MEQ/L (136-145)
[2017-06-25 23:23] LABS: CREATINE KINASE 92 U/L (26-192)
[2017-06-25 23:37] LABS: APTT (PATIENT) 21.2 SEC (24.3-30.1); INTERNATIONAL NORMALIZED RATIO 0.9 RATIO; PROTHROMBIN TIME - PATIENT 9.8 SEC (9.8-11.6)
[2017-06-25 23:44] LABS: AUTOMATED NEUTROPHIL # 6.1 TH/MM3 (1.8-7.7); BASOPHIL % 0.3 % (0.0-2.0); EOSINOPHIL # 0.1 TH/MM3 (0-0.4); EOSINOPHIL % 0.9 % (0.0-4.0); HEMATOCRIT 35.9 % (35.0-46.0); LYMPH % 21.1 % (9.0-44.0); LYMPHOCYTE # 1.8 TH/MM3 (1.0-4.8); MEAN CORPUSCULAR HEMOGLOBIN 28.6 PG (27.0-34.0); MEAN CORPUSCULAR HGB CONC 32.5 % (32.0-36.0); MONO % 5.4 % (0.0-8.0); NEUT % 72.3 % (16.0-70.0); PLATELET COUNT 158 TH/MM3 (150-450); RED BLOOD COUNT 4.09 MIL/MM3 (4.00-5.30); RED CELL DISTRIBUTION WIDTH 15.1 % (11.6-17.2); WHITE BLOOD COUNT 8.4 TH/MM3 (4.0-11.0)
[2017-06-25 23:50] LABS: HEMO FLAGS AUTO DIFF
[2017-06-26] VITALS (8 sets, daily range): BP systolic 86–103; BP diastolic 52–58; PULSE 54–86; RESP 16–22; TEMP 96.6–98; O2SAT 95–100
[2017-06-26 00:27] LABS: LACTIC ACID GHOST NOT REPORTABLE
[2017-06-26 00:55] LABS: BLOOD, URINE TRACE (NEG); GLUCOSE,URINE NEG (NEG); KETONE, URINE NEG (NEG); NITRITE,URINE NEG (NEG); PH, URINE 6.5 (5.0-8.5); SQUAMOUS EPITHELIAL CELL URINE 1 /hpf (0-5); TRANSITIONAL EPI CELLS, URINE <1 /hpf; URINE COLOR YELLOW (YELLW/STRAW)
[2017-06-26 01:01] LABS: COMMENT (UR) CULT NOT INDICATED; CULTURE IF INDICATED CULT NOT INDICATED
[2017-06-26 01:32] LABS: BANDS 35 % (0-6); BASOPHILS 1 % (0-2); EOSINOPHILS 1 % (0-4); NEUTROPHIL # MANUAL DIFF 6.8 TH/MM3 (1.8-7.7); PLATELET ESTIMATE SMEAR NORMAL (NORMAL); PLATELET MORPHOLOGY ENLARGED (NORMAL); POLYS (SEG NEUTROPHILS) 46 % (16-70); SCAN/DIFF FINAL DIFF MANUAL; TOXIC GRANULATION 1+ (NORMAL); WBC DIFF SAMPLE 100
[2017-06-26] MEDS ORDERED: NALOXONE HCL 0.4 MG/ML AMP IV PUSH PRN (01:45)
[2017-06-26] MEDS ORDERED: ONDANSETRON HCL 4 MG/2 ML VIAL IVP PRN (01:45)
[2017-06-26] MEDS ORDERED: Vancomycin Consult Pharmacy 1 EA OTHER SCH (01:45)
[2017-06-26] MEDS ORDERED: SODIUM CHLORIDE 0.9% FLUSH 10 ML FLUSH IV FLUSH PRN (01:45)
[2017-06-26] MEDS: SODIUM CHLOR 0.9% 1000 ML INJ 1,000 ML IV SCH ×3 (02:02→21:33)
[2017-06-26] MEDS: ENOXAPARIN SODIUM 40 MG/0.4 ML SYRINGE SQ SCH (02:02)
[2017-06-26] MEDS: PIPERACIL-TAZO 3.375 GM PREMIX 50 ML IV SCH ×4 (05:04→22:47)
[2017-06-26] MEDS: SODIUM CHLORIDE 0.9% FLUSH 10 ML FLUSH IV FLUSH SCH ×2 (09:00→21:32)
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
[2017-06-26] MEDS: VANCOMYCIN INJ 1,250 MG in SODIUM CHLOR 0.9% 250 ML INJ 250 ML IV SCH ×2 (10:50→22:47)
[2017-06-26] MEDS ORDERED: DIATRIZOATE MEGLUM/DIATRIZOATE SOD 9 ML CUP PO ONE (11:15)
[2017-06-26] MEDS: ACETAMINOPHEN 325 MG TAB PO PRN (12:23)
[2017-06-26 13:30] LABS: AUTOMATED NEUTROPHIL # 4.1 TH/MM3 (1.8-7.7); BASOPHIL % 0.1 % (0.0-2.0); HEMATOCRIT 30.4 % (35.0-46.0); HEMO FLAGS DIFF FINAL; LYMPH % 20.4 % (9.0-44.0); LYMPHOCYTE # 1.2 TH/MM3 (1.0-4.8); MEAN CELL VOLUME 89.1 FL (80.0-100.0); MEAN CORPUSCULAR HEMOGLOBIN 29.1 PG (27.0-34.0); MEAN CORPUSCULAR HGB CONC 32.7 % (32.0-36.0); NEUT % 71.5 % (16.0-70.0); PLATELET COUNT 116 TH/MM3 (150-450); RED BLOOD COUNT 3.42 MIL/MM3 (4.00-5.30); RED CELL DISTRIBUTION WIDTH 15.1 % (11.6-17.2); WHITE BLOOD COUNT 5.8 TH/MM3 (4.0-11.0)
[2017-06-26 14:02] LABS: ALT (GPT) 48 U/L (10-53); ANION GAP 10 MEQ/L (5-15); BICARBONATE 22.5 MEQ/L (21.0-32.0); BLOOD UREA NITROGEN 10 MG/DL (7-18); CHLORIDE 109 MEQ/L (98-107); GLOMERULAR FILTRATION RATE 121 ML/MIN (>89); POTASSIUM 3.2 MEQ/L (3.5-5.1); SODIUM (NA) 141 MEQ/L (136-145)
[2017-06-26 14:13] LABS: ALKALINE PHOSPHATASE 117 U/L (45-117); AST (GOT) 19 U/L (15-37); TOTAL BILIRUBIN ADULT 0.4 MG/DL (0.2-1.0)
[2017-06-26] MEDS: KETOROLAC TROMETHAMINE 30 MG/ML (IVP) VIAL IV PUSH PRN ×2 (14:31→21:32)
[2017-06-26 14:43] LABS: M. TUBERCULOSIS PCR NOT DETECTED (NOT DETECT)
--- NOTE | 2017-06-26 15:11 | HHI.HP ---
HPI Service [facility] Primary Care Physician No Primary Care Physician Admission Diagnosis Pneumonia, IVDU, r/o endocarditis Diagnoses: Chief Complaint: Fevers, chills, pneumonia, endocarditis Travel History International Travel<30 Days: No Contact w/Intl Traveler <30 Da: No Traveled to Known Affected Are: No Sepsis Criteria SIRS Criteria (2 or more): Heart rate over 90 Severe Sepsis (+one): Lactate >2 History of Present Illness Written by Kamilla Brice, acting as scribe for Dr. Mahan on 06/26/17 at 15: 05. Patient is a 36-year-old female with primary medical history of IV drug abuse, anxiety, depression who came into the hospital for complaints of pleuritic chest pain, shortness of breath, fevers, chills. As per patient she left AMA from [facility] today and she was diagnosed with pneumonia and endocarditis. Patient states that she was never diagnosed with endocarditis before. States that since last Saturday she's been having fevers, chills, cough, expectorating thick mucus. Patient states that she used to do IV drug heroin about 1 year and a half. States she started on crystal meth with last use about a month ago. Patient states that with crystal meth she is not using it every day just occasionally. States she wants to be helped on her chest pain that gets worse with taking deep breaths. She denies any headaches, dizziness. She denies abdominal pain or discomfort, nausea, vomiting, diarrhea, dysuria. Patient reports prior back surgery with stefan placement on her back. She also reports needles breaking in her arms. Review of Systems Constitutional: COMPLAINS OF: Diaphoretic episodes, Fatigue, Fever, Weight loss , Chills, Night Sweats Endocrine: DENIES: Heat/cold intolerance Eyes: DENIES: Blurred vision, Eye inflammation Ears, nose, mouth, throat: DENIES: Tinnitus, Hearing loss, Oral lesions, Throat pain Respiratory: COMPLAINS OF: Cough, Hemoptysis, Sputum production, Shortness of breath Cardiovascular: COMPLAINS OF: Chest pain Gastrointestinal: DENIES: Abdominal pain, Diarrhea, Nausea, Vomiting, Difficulty Swallowing Musculoskeletal: DENIES: Joint pain Integumentary: DENIES: Pruritus, Rash Hematologic/lymphatic: DENIES: Bruising Immunologic/allergic: DENIES: Urticaria Neurologic: DENIES: Headache, Paresthesias Psychiatric: COMPLAINS OF: Anxiety, Depression Except as stated in HPI: all other systems reviewed are Neg Past Family Social History Past Medical History Arthritis Anxiety Depression IV drug abuse Past Surgical History Tubal ligation Back surgery with hardware placement Reported Medications Reported Meds & Active Scripts Active Fluconazole 150 Mg Tab 150 Mg PO ONCE Bactrim DS (Sulfamethoxazole-Trimethoprim) 800-160 Mg Tab 1 Tab PO BID Allergies: Coded Allergies: No Known Allergies (Unverified Allergy, Unknown, 06/26/17) MRI PRECAUTION (Verified Adverse Reaction, Severe, BROKEN OFF NEEDLES IN ARM. DR. Smiley ODELL. 06/26/17 LRS, 06/26/17) Active Ordered Medications Current Medications Medications (Trade) Dose Ordered Sig/[place] Route Start Time Stop Time Status Last Admin Sodium Chloride 1,000 ml @ 100 mls/hr Q10H IV 06/26/17 01:33 06/26/17 12:18 (NS Flush) 2 ml UNSCH PRN IV FLUSH 06/26/17 01:45 (NS Flush) 2 ml BID IV FLUSH 06/26/17 09:00 (Tylenol) 650 mg Q4H PRN PO 06/26/17 01:45 06/26/17 12:23 (Zofran Inj) 4 mg Q6H PRN IVP 06/26/17 01:45 (Lovenox Inj) 40 mg DAILY@0000 SQ 06/26/17 02:00 06/26/17 02:02 (Narcan Inj) 0.4 mg UNSCH PRN IV PUSH 06/26/17 01:45 Pharmacy Profile Note 0 ml @ 0 mls/hr UNSCH OTHER 06/26/17 01:45 Piperacillin Sod/ Tazobactam Sod 50 ml @ 100 mls/hr Q6H IV 06/26/17 05:00 06/26/17 12:17 Vancomycin HCl 1250 mg/Sodium Chloride 262.5 ml @ 250 mls/hr Q12H IV 06/26/17 10:00 06/26/17 10:50 Miscellaneous Information SPECIFIC LAB TO BE DRAWN:VANCOMYCIN TROUGH DATE TO... ONCE ONCE .XX 11/16/17 21:45 06/27/17 21:46 (Toradol Inj) 30 mg Q6H PRN IV PUSH 06/26/17 12:30 06/26/17 14:31 Family History Reports family history of cancer, unknown type Reports father has rheumatic fever, eventually lead to valve replacement. Social History Occasional alcohol use Smoking less than half a pack per day Marijuana use, IV drug use of heroin when, crystal meth, history of narcotic abuse Physical Exam Vital Signs Vital Signs Date Time Temp Pulse Resp B/P (MAP) Pulse Ox O2 Delivery O2 Flow Rate FiO2 06/26/17 14:34 97.8 55 18 103/58 (73) 99 Room Air 06/26/17 10:54 97.9 69 22 103/58 (73) 98 Room Air 06/26/17 07:36 97.5 83 20 86/53 (64) 98 Room Air 06/26/17 04:29 54 16 90/52 (65) 100 Room Air 06/26/17 00:54 85 16 101/52 (68) 98 Room Air 06/25/17 22:47 96 16 104/60 (75) 100 Room Air 06/25/17 22:42 93 16 100 Room Air 06/25/17 22:41 100 Room Air 06/25/17 20:12 99.1 123 18 118/60 (79) 99 Room Air Physical Exam GENERAL: This is a well-nourished, well-developed patient, in no apparent distress. SKIN: No rashes, ecchymoses or lesions. Cool and dry. HEAD: Normocephalic. No temporal or scalp tenderness. EYES: Pupils equal round and reactive. Extraocular motions intact. No scleral icterus. No injection or drainage. ENT: Nose without bleeding. Throat without erythema. Uvula midline. Airway patent. NECK: Trachea midline. No JVD or lymphadenopathy. Supple. CARDIOVASCULAR: Regular rate and rhythm without murmurs, gallops, or rubs. RESPIRATORY: Diminished bases. No wheezes, rales, or rhonchi. GASTROINTESTINAL: Abdomen soft, non-tender, nondistended. No guarding. Bowel sounds active 4. MUSCULOSKELETAL: Extremities without clubbing, cyanosis, or edema. NEUROLOGICAL: Awake and alert. Cranial nerves II through XII intact. Motor and sensory grossly within normal limits. Normal speech. Laboratory Laboratory Tests Test 06/25/17 22:00 06/26/17 00:30 06/26/17 00:52 06/26/17 11:46 White Blood Count 8.4 Red Blood Count 4.09 Hemoglobin 11.7 Hematocrit 35.9 Mean Corpuscular Volume 88.0 Mean Corpuscular Hemoglobin 28.6 Mean Corpuscular Hemoglobin Concent 32.5 Red Cell Distribution Width 15.1 Platelet Count 158 Mean Platelet Volume 9.7 Neutrophils (%) (Auto) 72.3 Lymphocytes (%) (Auto) 21.1 Monocytes (%) (Auto) 5.4 Eosinophils (%) (Auto) 0.9 Basophils (%) (Auto) 0.3 Neutrophils # (Auto) 6.1 Lymphocytes # (Auto) 1.8 Monocytes # (Auto) 0.5 Eosinophils # (Auto) 0.1 Basophils # (Auto) 0.0 CBC Comment AUTO DIFF Differential Total Cells Counted 100 Neutrophils % (Manual) 46 Band Neutrophils % 35 Lymphocytes % 16 Monocytes % 1 Eosinophils % 1 Basophils % 1 Neutrophils # (Manual) 6.8 Differential Comment FINAL DIFF MANUAL Toxic Granulation 1+ Platelet Estimate NORMAL Platelet Morphology Comment ENLARGED Prothrombin Time 9.8 Prothromb Time International Ratio 0.9 Activated Partial Thromboplast Time 21.2 Blood Urea Nitrogen 8 Creatinine 0.64 Random Glucose 70 Total Protein 7.7 Albumin 3.2 Calcium Level 8.8 Alkaline Phosphatase 130 Aspartate Amino Transf (AST/SGOT) 30 Alanine Aminotransferase (ALT/SGPT) 65 Total Bilirubin 0.4 Sodium Level 140 Potassium Level 3.5 Chloride Level 107 Carbon Dioxide Level 22.1 Anion Gap 11 Estimat Glomerular Filtration Rate 104 Lactic Acid Level 2.5 0.8 Total Creatine Kinase 92 Troponin I LESS THAN 0.02 Urine Color YELLOW Urine Turbidity CLEAR Urine pH 6.5 Urine Specific [place] 1.011 Urine Protein NEG Urine Glucose (UA) NEG Urine Ketones NEG Urine Occult Blood TRACE Urine Nitrite NEG Urine Bilirubin NEG Urine Urobilinogen LESS THAN 2.0 Urine Leukocyte Esterase NEG Urine RBC 1 Urine WBC 4 Urine Squamous Epithelial Cells 1 Urine Transitional Epithelial Cells <1 Microscopic Urinalysis Comment CULT NOT INDICATED M. tuberculosis Complex DNA (PCR) NOT DETECTED Test 06/26/17 13:13 White Blood Count 5.8 Red Blood Count 3.42 Hemoglobin 10.0 Hematocrit 30.4 Mean Corpuscular Volume 89.1 Mean Corpuscular Hemoglobin 29.1 Mean Corpuscular Hemoglobin Concent 32.7 Red Cell Distribution Width 15.1 Platelet Count 116 Mean Platelet Volume 9.6 Neutrophils (%) (Auto) 71.5 Lymphocytes (%) (Auto) 20.4 Monocytes (%) (Auto) 8.0 Eosinophils (%) (Auto) 0.0 Basophils (%) (Auto) 0.1 Neutrophils # (Auto) 4.1 Lymphocytes # (Auto) 1.2 Monocytes # (Auto) 0.5 Eosinophils # (Auto) 0.0 Basophils # (Auto) 0.0 CBC Comment DIFF FINAL Differential Comment Blood Urea Nitrogen 10 Creatinine 0.56 Random Glucose 107 Total Protein 6.4 Albumin 2.4 Calcium Level 8.1 Alkaline Phosphatase 117 Aspartate Amino Transf (AST/SGOT) 19 Alanine Aminotransferase (ALT/SGPT) 48 Total Bilirubin 0.4 Sodium Level 141 Potassium Level 3.2 Chloride Level 109 Carbon Dioxide Level 22.5 Anion Gap 10 Estimat Glomerular Filtration Rate 121 Date/Time Source Procedure Growth Status 06/25/17 22:05 Blood Peripheral Aerobic Blood Culture - Preliminary NO GROWTH IN 1 DAY Resulted 06/25/17 22:05 Blood Peripheral Anaerobic Blood Culture - Preliminary NO GROWTH IN 1 DAY Resulted 06/26/17 11:46 Sputum Expectorated Sputum Acid Fast Stain Pending Received 06/26/17 11:46 Sputum Expectorated Sputum Mycobacterial Culture Pending Received Result Diagram: 06/26/17 1313 06/26/17 1313 Imaging Last Impressions Chest X-Ray 06/25/172039 Signed Impressions: Service Date/Time: Sunday, June 25, 2017 20:52 - CONCLUSION: 2 nodular areas seen in the right upper lung and right mid lung. These could be further evaluated with a CT examination the chest. MD Kiki Hobsoni VTE Risk Assessment Caprini VTE Risk Assessment: Mod/High Risk (score >= 2) Caprini Risk Assessment Model Point Value = 1 Point Value = 2 Point Value = 3 Point Value = 5 Age 41-60 Minor surgery BMI > 25 kg/m2 Swollen legs Varicose veins or History of unexplained or recurrent spontaneous Oral contraceptives or hormone replacement Sepsis (< 1 month) Serious lung disease, including pneumonia (< 1 month) Abnormal pulmonary function Acute myocardial infarction Congestive heart failure (< 1 month) History of inflammatory bowel disease Medical patient at bed rest Age 61-74 Arthroscopic surgery Major open surgery (> 45 min) Laparoscopic surgery (> 45 min) Malignancy Confined to bed (> 72 hours) Immobilizing plaster cast Central venous access Age >= 75 History of VTE Family history of VTE Factor V Leiden Prothrombin [id number] Lupus anticoagulant Anticardiolipin antibodies Elevated serum homocysteine Heparin-induced thrombocytopenia Other congenital or acquired thrombophilia Stroke (< 1 month) Elective arthroplasty Hip, pelvis, or leg fracture Acute spinal cord injury (< 1 month) Prophylaxis Regimen Total Risk Factor Score Risk Level Prophylaxis Regimen 0-1 Low Early ambulation 2 Moderate Order ONE of the following: *Sequential Compression Device (SCD) *Heparin 5000 units SQ BID 3-4 Higher Order ONE of the following medications: *Heparin 5000 units SQ TID *Enoxaparin/Lovenox 40 mg SQ daily (WT < 150 kg, CrCl > 30 mL/min) *Enoxaparin/Lovenox 30 mg SQ daily (WT < 150 kg, CrCl > 10-29 mL/min) *Enoxaparin/Lovenox 30 mg SQ BID (WT < 150 kg, CrCl > 30 mL/min) AND/OR *Sequential Compression Device (SCD) 5 or more Highest Order ONE of the following medications: *Heparin 5000 units SQ TID (Preferred with Epidurals) *Enoxaparin/Lovenox 40 mg SQ daily (WT < 150 kg, CrCl > 30 mL/min) *Enoxaparin/Lovenox 30 mg SQ daily (WT < 150 kg, CrCl > 10-29 mL/min) *Enoxaparin/Lovenox 30 mg SQ BID (WT < 150 kg, CrCl > 30 mL/min) AND *Sequential Compression Device (SCD) Assessment and Plan Problem List: (1) Pleuritic chest pain ICD Code: R07.81 - Pleurodynia (2) IVDU (intravenous drug user) ICD Code: F19.90 - Other psychoactive substance use, unspecified, uncomplicated Status: Acute (3) Bandemia ICD Code: D72.825 - Bandemia Status: Acute (4) Polysubstance abuse ICD Code: F19.10 - Other psychoactive substance abuse, uncomplicated Status: Acute (5) Anxiety ICD Code: F41.9 - Anxiety disorder, unspecified Status: Acute (6) Chronic back pain ICD Code: M54.9 - Dorsalgia, unspecified; G89.29 - Other chronic pain Status: Acute (7) Pneumonia ICD Code: J18.9 - Pneumonia, unspecified organism Status: Acute Assessment and Plan Patient is a 36-year-old female with primary medical history of IV drug abuse, anxiety, depression who came into the hospital for complaints of pleuritic chest pain, shortness of breath, fevers, chills. Atypical chest pain/ Pleuritic Pain, acute ? Pneumonia, CAP vs Tuberculosis R/O endocarditis R/O septic embolus - Patient does not meet SIRS or sepsis criteria for now. Partially treated with Zosyn and vancomycin in ED and [facility] ED. Lactic acid 2.5. - Patient states that he was diagnosed with pneumonia, endocarditis at [facility]. Pending medical records. - Pleuritic pain increase with deep breathing and cough - Chest x-ray showed 2 nodular areas seen in the right upper lung and right mid lung. This could be further evaluated with a CT examination. - CT of the chest, CT angiogram rule out PE, septic emboli, check CT abdomen and pelvis - Check blood cultures, sputum cultures, mycobacterium tuberculosis - Check echocardiogram - Hold off MRI secondary to stefan placement from previous back surgery - Tuberculosis precaution, check for PCR of tuberculosis if negative will discontinue airborne precaution - Follow-up labs - IV antibiotics Zosyn, vancomycin - Ketorolac for pain - Patient received Solu-Medrol 125 mg IV push in the ED. - DuoNeb's scheduled when necessary. - ID consult for further recommendations IV drug use - Patient is been counseled - Echocardiogram as above - Follow-up labs as above - ID consult for further recommendations. Recommends to check HIV status, hepatitis status, GC and chlamydia status, RPR Elevated LFTs, transaminitis - CT of the abdomen and pelvis - Trend LFTs - Check hepatitis panel DVT prop Lovenox This note was transcribed by INNA Macedo . I, Dr. Rasheeda Mahan personally performed the history, physical exam, and medical decision making; and confirmed the accuracy of the information in the transcribed note. Authenticated by Dr. Rashedea Mahan on 06/26/17 at 15:05. Code Status Full Code Discussed Condition With Patient, nursing, and the attending Physician Certification 2 Midnight Certification Type: Admission for Inpatient Services Order for Inpatient Services The services are ordered in accordance with Medicare regulations or non- Medicare payer requirements, as applicable. In the case of services not specified as inpatient-only, they are appropriately provided as inpatient services in accordance with the 2-midnight benchmark. Estimated LOS (days): 3 days is the estimated time the patient will need to remain in the hospital, assuming treatment plan goals are met and no additional complications. Post-Hospital Plan: Home Problem Qualifiers (1) Pneumonia: Qualified Codes: J18.9 - Pneumonia, unspecified organism Kamilla Castaneda Jun 26, 2017 15:11 Rasheeda Mahan MD Jun 26, 2017 17:42
[2017-06-26] MEDS ORDERED: POTASSIUM CHLORIDE 20 MEQ CONTROLLED RELEASE TAB PO ONE (15:30)
[2017-06-26] MEDS ORDERED: RESP: ALBUTEROL 2.5 MG/IPRATROPIUM 0.5 MG NEB (PRN) NEB (17:00)
[2017-06-26 17:45] LABS: CHLAMYDIA PCR NOT DETECTED (NOT DETECT); NEISSERIA PCR NOT DETECTED (NOT DETECT)
[2017-06-26] MEDS ORDERED: POTASSIUM CHLORIDE 10 MEQ CONTROLLED RELEASE TAB PO ONE (17:45)
--- NOTE | 2017-06-26 18:55 | EKG ---
Date Performed: 06/25/2017 Time Performed: 21:20:56 PTAGE: 36 years EKG: SINUS TACHYCARDIA ABNORMAL RHYTHM ECG Compared to the PREVIOUS TRACING rate faster DOCTOR: Alex Hooker Interpretating Date/Time 06/26/2017 18:54:41
[2017-06-26] MEDS ORDERED: IOHEXOL 350 MG/ML 10 ML VIAL (for RAD DIAG) IVCONTRAST ONE (18:57)
--- NOTE | 2017-06-26 19:45 | RADRPT ---
EXAM DATE/TIME: 06/26/2017 18:33 [facility] COMPARISON: CHEST PA & LAT, June 25, 2017, 20:52. INDICATIONS : Evaluate for endocarditis. Septic emboli. Chest pain. Shortness of breath. IV CONTRAST: 100 cc Omnipaque 350 (iohexol) IV ; Cumulative dose for multiple exams. RADIATION DOSE: 8.86 CTDIvol (mGy) ; Combined studies - Thorax/Abdomen/Pelvis MEDICAL HISTORY : Cardiovascular disease. SURGICAL HISTORY : Tubal ligation. ENCOUNTER: Initial ACUITY: 1 day PAIN SCALE: 6/10 LOCATION: Bilateral chest TECHNIQUE: Volumetric scanning of the chest was performed. Using automated exposure control and adjustment of t he mA and/or kV according to patient size, radiation dose was kept as low as reasonably achievable to obtain optimal diagnostic quality images. DICOM format image data is available electronically for review and comparison. Follow-up recommendations for detected pulmonary nodules are based at a minimum on nodule size and pa tient risk factors according to Fleischner Society Guidelines. FINDINGS: LUNGS: There are multiple focal smooth and ill-defined masses seen in both lungs. The largest focal density is seen in the right middle lobe region measuring 1.6 cm. There some cavitary change in a focal lesio n in the posterior aspect of the right upper lobe. There is suspected atelectasis or ill-defined area s of consolidation seen at the posterior lung bases bilaterally. PLEURA: There is no pleural thickening or pleural effusion. MEDIASTINUM: The heart and great vessels demonstrate no acute abnormality. There is no mediastinal or hilar lymph adenopathy. AXILLAE: Within normal limits. No lymphadenopathy. SKELETAL: Within normal limits for patient age. MISCELLANEOUS: The visualized upper abdominal organs demonstrate no acute abnormality. CONCLUSION: Multiple masses including ill-defined masses and masses with cavitary change concerning for septic em boli. Shahid Wood MD on June 26, 2017 at 19:38 Board Certified Radiologist. This report was verified electronically.
--- NOTE | 2017-06-26 19:48 | RADRPT ---
EXAM DATE/TIME: 06/26/2017 18:33 [facility] COMPARISON: No previous studies available for comparison. INDICATIONS : Evaluate for abscess. IV CONTRAST: 100 cc Omnipaque 350 (iohexol) IV ; Cumulative dose for multiple exams. ORAL CONTRAST: Prescribed oral contrast ingested. RADIATION DOSE: 8.86 CTDIvol (mGy) ; Combined studies - Thorax/Abdomen/Pelvis MEDICAL HISTORY : None SURGICAL HISTORY : None. ENCOUNTER: Initial ACUITY: 1 day PAIN SCALE: 6/10 LOCATION: Bilateral lower quadrant upper quadrant TECHNIQUE: Volumetric scanning of the abdomen and pelvis was performed. Using automated exposure control and ad justment of the mA and/or kV according to patient size, radiation dose was kept as low as reasonably achievable to obtain optimal diagnostic quality images. DICOM format image data is available electro nically for review and comparison. FINDINGS: LOWER LUNGS: The visualized lower lungs are clear. LIVER: Homogeneous density without lesion. There is no dilation of the biliary tree. No calcified gallston es. SPLEEN: Normal size without lesion. PANCREAS: Within normal limits. KIDNEYS: Normal in size and shape. There is no mass, stone or hydronephrosis. ADRENAL GLANDS: Within normal limits. VASCULAR: There is no aortic aneurysm. BOWEL/MESENTERY: The stomach, small bowel, and colon demonstrate no acute abnormality. There is no free intraperitone al air or fluid. ABDOMINAL WALL: There is an umbilical piercing. There is air within the subcutaneous fat at the right lower anterior abdominal wall. RETROPERITONEUM: There is no lymphadenopathy. BLADDER: No wall thickening or mass. REPRODUCTIVE: Within normal limits. There is mild free fluid in the cul-de-sac. INGUINAL: There is no lymphadenopathy or hernia. MUSCULOSKELETAL: Transpedicular screws are seen at the L3-L5 levels. Patient status post laminectomy at the L4 and L5 levels. CONCLUSION: 1. No acute abnormality is seen. 2. Postsurgical hardware and change in the lower lumbar spine. 3. Mild free fluid in the cul-de-sac. 4. Small focus of air seen in the right anterior abdominal wall subcutaneous fat. Shahid Wood MD on June 26, 2017 at 19:43 Board Certified Radiologist. This report was verified electronically.
[2017-06-26] MEDS ORDERED: KETOROLAC TROMETHAMINE 60 MG/2 ML (IM) VIAL IM PRN (23:45)
[2017-06-27] VITALS (8 sets, daily range): BP systolic 79–112; BP diastolic 47–63; PULSE 58–85; RESP 18–20; TEMP 97.6–98.1; O2SAT 97–100
[2017-06-27] MEDS: ENOXAPARIN SODIUM 40 MG/0.4 ML SYRINGE SQ SCH ×2 (01:11→23:16)
[2017-06-27] MEDS: PIPERACIL-TAZO 3.375 GM PREMIX 50 ML IV SCH ×2 (04:16→11:23)
[2017-06-27] MEDS: SODIUM CHLOR 0.9% 1000 ML INJ 1,000 ML IV SCH ×2 (07:33→17:08)
[2017-06-27 07:51] LABS: HEMATOCRIT 29.6 % (35.0-46.0); MEAN CELL VOLUME 88.2 FL (80.0-100.0); MEAN CORPUSCULAR HEMOGLOBIN 28.8 PG (27.0-34.0); MEAN CORPUSCULAR HGB CONC 32.6 % (32.0-36.0); PLATELET COUNT 171 TH/MM3 (150-450); RED BLOOD COUNT 3.36 MIL/MM3 (4.00-5.30); RED CELL DISTRIBUTION WIDTH 15.5 % (11.6-17.2); REVIEW FLAG FINAL; WHITE BLOOD COUNT 6.6 TH/MM3 (4.0-11.0)
[2017-06-27 08:05] LABS: ANION GAP 9 MEQ/L (5-15); AST (GOT) 21 U/L (15-37); BICARBONATE 22.7 MEQ/L (21.0-32.0); BLOOD UREA NITROGEN 11 MG/DL (7-18); CHLORIDE 115 MEQ/L (98-107); GLOMERULAR FILTRATION RATE 106 ML/MIN (>89); POTASSIUM 3.1 MEQ/L (3.5-5.1); SODIUM (NA) 147 MEQ/L (136-145)
[2017-06-27 08:08] LABS: ALKALINE PHOSPHATASE 112 U/L (45-117); ALT (GPT) 43 U/L (10-53); TOTAL BILIRUBIN ADULT 0.2 MG/DL (0.2-1.0)
--- NOTE | 2017-06-27 08:11 | HHI.PR ---
Subjective Remarks Patient is in bed she is sleepy at this time. Has some back pain. No chest pain at this time. Says she is coughing less. No sputum production at this time. No fever or chills overnight. Denies nausea or vomiting. Objective Vitals Vital Signs Date Time Temp Pulse Resp B/P (MAP) Pulse Ox O2 Delivery O2 Flow Rate FiO2 06/27/17 06:04 97.9 62 18 97/52 (67) 99 06/27/17 01:11 91/55 (67) 06/27/17 00:57 98.0 68 18 79/47 (58) 99 06/26/17 21:24 95 21 06/26/17 21:21 98.0 86 18 101/57 (72) 100 06/26/17 17:24 96.6 74 18 89/53 (65) 100 06/26/17 17:05 06/26/17 14:58 18 06/26/17 14:34 97.8 55 18 103/58 (73) 99 Room Air 06/26/17 10:54 97.9 69 22 103/58 (73) 98 Room Air I/O 06/26/17 06/26/17 06/26/17 06/27/17 06/27/17 06/27/17 07:00 15:00 23:00 07:00 15:00 23:00 Intake Total 1350 ml 1362.5 ml 100 ml Balance 1350 ml 1362.5 ml 100 ml Intake IV Total 1350 ml 1362.5 ml 100 ml # Voids 1 Result Diagram: 06/27/17 0653 06/27/17 0653 Imaging Last Impressions Chest CT 06/26/17 0000 Signed Impressions: Service Date/Time: Monday, June 26, 2017 18:33 - CONCLUSION: Multiple masses including ill-defined masses and masses with cavitary change concerning for septic emboli. Shahid Wood MD Abdomen/Pelvis CT 06/26/17 0000 Signed Impressions: Service Date/Time: Monday, June 26, 2017 18:33 - CONCLUSION: 1. No acute abnormality is seen. 2. Postsurgical hardware and change in the lower lumbar spine. 3. Mild free fluid in the cul-de-sac. 4. Small focus of air seen in the right anterior abdominal wall subcutaneous fat. Shahid Wood MD Chest X-Ray 06/25/172039 Signed Impressions: Service Date/Time: Sunday, June 25, 2017 20:52 - CONCLUSION: 2 nodular areas seen in the right upper lung and right mid lung. These could be further evaluated with a CT examination the chest. Shahid Wood MD Objective Remarks GENERAL: This is a well-nourished, well-developed patient, in no apparent distress. CARDIOVASCULAR: Regular rate and rhythm without murmurs, gallops, or rubs. RESPIRATORY: Diminished bases. No wheezes, rales, or rhonchi. GASTROINTESTINAL: Abdomen soft, non-tender, nondistended. No guarding. Bowel sounds active 4. MUSCULOSKELETAL: Extremities without clubbing, cyanosis, or edema. NEUROLOGICAL: Awake and alert. Cranial nerves II through XII intact. Motor and sensory grossly within normal limits. Normal speech. A/P Problem List: (1) Pleuritic chest pain ICD Code: R07.81 - Pleurodynia (2) IVDU (intravenous drug user) ICD Code: F19.90 - Other psychoactive substance use, unspecified, uncomplicated Status: Acute (3) Bandemia ICD Code: D72.825 - Bandemia Status: Acute (4) Polysubstance abuse ICD Code: F19.10 - Other psychoactive substance abuse, uncomplicated Status: Acute (5) Anxiety ICD Code: F41.9 - Anxiety disorder, unspecified Status: Acute (6) Chronic back pain ICD Code: M54.9 - Dorsalgia, unspecified; G89.29 - Other chronic pain Status: Acute (7) Pneumonia ICD Code: J18.9 - Pneumonia, unspecified organism Status: Acute Assessment and Plan Patient is a 36-year-old female with primary medical history of IV drug abuse, anxiety, depression who came into the hospital for complaints of pleuritic chest pain, shortness of breath, fevers, chills. Atypical chest pain/ Pleuritic Pain, acute ? Pneumonia, CAP vs Tuberculosis R/O endocarditis R/O septic embolus Patient does not meet SIRS or sepsis criteria for now. Partially treated with Zosyn and vancomycin in ED and [facility] ED. Lactic acid 2.5. Patient states that he was diagnosed with pneumonia, endocarditis at [facility]. Pending medical records. Pleuritic pain increase with deep breathing and cough Chest x-ray showed 2 nodular areas seen in the right upper lung and right mid lung. This could be further evaluated with a CT examination. CT of the chest reviewed with cavitary lesions suspicious of septic emboli. CT angiogram no PE. CT abdomen and pelvis reviewed Check blood cultures, sputum cultures, mycobacterium tuberculosis Check echocardiogram Hold off MRI secondary to stefan placement from previous back surgery Tuberculosis precaution, check for PCR of tuberculosis if negative will discontinue airborne precaution Follow-up labs IV antibiotics Zosyn, vancomycin Ketorolac for pain Patient received Solu-Medrol 125 mg IV push in the ED. DuoNeb's scheduled when necessary. ID consult for further recommendations IV drug use Patient is been counseled Echocardiogram as above Follow-up labs as above ID consult for further recommendations. Recommends to check HIV status, hepatitis status, GC and chlamydia status, RPR Elevated LFTs, transaminitis CT of the abdomen and pelvis Trend LFTs Check hepatitis panel DVT prop Lovenox Code Status Full Code Discussed Condition With Patient, nurse Problem Qualifiers (1) Pneumonia: Qualified Codes: J18.9 - Pneumonia, unspecified organism Rasheeda Mahan MD Jun 27, 2017 08:11
[2017-06-27] MEDS: SODIUM CHLORIDE 0.9% FLUSH 10 ML FLUSH IV FLUSH SCH ×2 (09:00→22:08)
[2017-06-27] MEDS: VANCOMYCIN INJ 1,250 MG in SODIUM CHLOR 0.9% 250 ML INJ 250 ML IV SCH ×2 (09:31→22:08)
[2017-06-27] MEDS: KETOROLAC TROMETHAMINE 30 MG/ML (IVP) VIAL IV PUSH PRN ×2 (10:04→19:25)
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
[2017-06-27] MEDS: ceFAZolin 2 GM PREMIX 50 ML IV SCH ×2 (15:00→23:15)
--- NOTE | 2017-06-27 17:11 | ECHRPT ---
Indication: Acute and subacute infective endocarditis, Endocarditis and heart valve disorders in d iseases classified elsewhere CONCLUSIONS The transthoracic study is normal by two-dimensional, color flow imaging and Doppler interrogation. The aortic root and proximal ascending aorta are not well visualized. Trace mitral valve regurgitation. The pulmonary valve is not well visualized. BP: 103 / 58 HR: Rhythm: MEASUREMENTS (Male / Female) Normal Values Technical Quality:Good 2D ECHO LV Diastolic Diameter PLAX 3.9 cm 4.2 - 5.9 / 3.9 - 5.3 cm LV Systolic Diameter PLAX 2.8 cm IVS Diastolic Thickness 0.8 cm 0.6 - 1.0 / 0.6 - 0.9 cm LVPW Diastolic Thickness 0.9 cm 0.6 - 1.0 / 0.6 - 0.9 cm LV Relative Wall Thickness 0.4 M-MODE Aortic Root Diameter MM 3.2 cm LA Systolic Diameter MM 3.5 cm LA Ao Ratio MM 1.1 AV Cusp Separation MM 1.8 cm DOPPLER Mitral E Point Velocity 124.0 cm/s Mitral A Point Velocity 76.0 cm/s Mitral E to A Ratio 1.6 TR Peak Velocity 209.0 cm/s TR Peak Gradient 17.5 mmHg Right Atrial Pressure 10.0 mmHg Pulmonary Artery Systolic Pressu 27.5 mmHg Right Ventricular Systolic Press 27.5 mmHg FINDINGS LEFT VENTRICLE Normal left ventricular size and wall thickness. The left ventricular systolic function is normal wi th an estimated ejection fraction in the range of 60-65%. Left ventricular diastolic function parameters a re normal. RIGHT VENTRICLE Normal right ventricular size and systolic function. LEFT ATRIUM The left atrial size is normal. RIGHT ATRIUM The right atrial size is normal. ATRIAL SEPTUM Normal atrial septal thickness without atrial level shunting by limited color doppler interrogation. AORTA The aortic root and proximal ascending aorta are not well visualized. MITRAL VALVE Structurally normal mitral valve. Trace mitral valve regurgitation. AORTIC VALVE Trileaflet aortic valve. No aortic valve stenosis or regurgitation. TRICUSPID VALVE Structurally normal tricuspid valve. No tricuspid valve stenosis or regurgitation. PULMONARY VALVE The pulmonary valve is not well visualized. VESSELS The inferior vena cava is normal in size. PERICARDIUM No pericardial effusion. Albin Lopez MD (Electronically Signed) Final Date:27 June 2017 17:10
[2017-06-27] MEDS ORDERED: PHARMACY ORDERED LAB ONE (21:45)
[2017-06-28] VITALS (7 sets, daily range): BP systolic 92–111; BP diastolic 51–70; PULSE 64–80; RESP 16–20; TEMP 97.6–98.3; O2SAT 97–100
[2017-06-28] MEDS: KETOROLAC TROMETHAMINE 30 MG/ML (IVP) VIAL IV PUSH PRN ×3 (04:22→16:31)
[2017-06-28] MEDS: ceFAZolin 2 GM PREMIX 50 ML IV SCH ×3 (06:15→23:12)
[2017-06-28] MEDS: SODIUM CHLOR 0.9% 1000 ML INJ 1,000 ML IV SCH ×3 (06:15→23:12)
[2017-06-28] MEDS: SODIUM CHLORIDE 0.9% FLUSH 10 ML FLUSH IV FLUSH SCH ×2 (09:00→20:00)
--- NOTE | 2017-06-28 09:35 | HHI.PR ---
Subjective Remarks Patient is in bed she is eating. No nausea or vomiting. She says she is eating well however potassium is still low, will supplement. Not much cough, no sputum production. Has some chest pain at times with deep inspiration. He denies fever or chills. Family at bedside her mother. Discussed with the patient yesterday and all her medical problems can be discussed with her mother as well. Objective Vitals Vital Signs Date Time Temp Pulse Resp B/P (MAP) Pulse Ox O2 Delivery O2 Flow Rate FiO2 06/28/17 08:00 97.8 71 20 92/53 (66) 99 06/28/17 05:54 97.9 80 18 110/55 (73) 97 06/28/17 01:48 98.3 64 18 106/70 (82) 100 06/27/17 21:15 98.1 85 18 108/55 (72) 100 06/27/17 20:02 66 06/27/17 16:00 97.6 65 20 112/58 (76) 99 06/27/17 12:00 97.7 65 20 96/56 (69) 97 I/O 06/27/17 06/27/17 06/27/17 06/28/17 06/28/17 06/28/17 07:00 15:00 23:00 07:00 15:00 23:00 Intake Total 480 ml 534 ml 1136 ml Balance 480 ml 534 ml 1136 ml Intake Oral 480 ml IV Total 534 ml 1136 ml # Voids 4 1 # Bowel Movements 1 Result Diagram: 06/27/17 0653 06/27/17 0653 Imaging Last Impressions Chest CT 06/26/17 0000 Signed Impressions: Service Date/Time: Monday, June 26, 2017 18:33 - CONCLUSION: Multiple masses including ill-defined masses and masses with cavitary change concerning for septic emboli. Shahid Wood MD Abdomen/Pelvis CT 06/26/17 0000 Signed Impressions: Service Date/Time: Monday, June 26, 2017 18:33 - CONCLUSION: 1. No acute abnormality is seen. 2. Postsurgical hardware and change in the lower lumbar spine. 3. Mild free fluid in the cul-de-sac. 4. Small focus of air seen in the right anterior abdominal wall subcutaneous fat. Shahid Wood MD Chest X-Ray 06/25/172039 Signed Impressions: Service Date/Time: Sunday, June 25, 2017 20:52 - CONCLUSION: 2 nodular areas seen in the right upper lung and right mid lung. These could be further evaluated with a CT examination the chest. Shahid Wood MD Objective Remarks GENERAL: This is a well-nourished, well-developed patient, in no apparent distress. CARDIOVASCULAR: Regular rate and rhythm without murmurs, gallops, or rubs. RESPIRATORY: Diminished bases. No wheezes, rales, or rhonchi. GASTROINTESTINAL: Abdomen soft, non-tender, nondistended. No guarding. Bowel sounds active 4. MUSCULOSKELETAL: Extremities without clubbing, cyanosis, or edema. NEUROLOGICAL: Awake and alert. Cranial nerves II through XII intact. Motor and sensory grossly within normal limits. Normal speech. A/P Problem List: (1) Pleuritic chest pain ICD Code: R07.81 - Pleurodynia (2) IVDU (intravenous drug user) ICD Code: F19.90 - Other psychoactive substance use, unspecified, uncomplicated Status: Acute (3) Bandemia ICD Code: D72.825 - Bandemia Status: Acute (4) Polysubstance abuse ICD Code: F19.10 - Other psychoactive substance abuse, uncomplicated Status: Acute (5) Anxiety ICD Code: F41.9 - Anxiety disorder, unspecified Status: Acute (6) Chronic back pain ICD Code: M54.9 - Dorsalgia, unspecified; G89.29 - Other chronic pain Status: Acute (7) Pneumonia ICD Code: J18.9 - Pneumonia, unspecified organism Status: Acute Assessment and Plan Patient is a 36-year-old female with primary medical history of IV drug abuse, anxiety, depression who came into the hospital for complaints of pleuritic chest pain, shortness of breath, fevers, chills. Atypical chest pain/ Pleuritic Pain, acute ? Pneumonia, CAP vs Tuberculosis R/O endocarditis R/O septic embolus Patient does not meet SIRS or sepsis criteria for now. Partially treated with Zosyn and vancomycin in ED and [facility] ED. Lactic acid 2.5. Patient states that he was diagnosed with pneumonia, endocarditis at [facility]. Pending medical records. Pleuritic pain increase with deep breathing and cough Chest x-ray showed 2 nodular areas seen in the right upper lung and right mid lung. This could be further evaluated with a CT examination. CT of the chest reviewed with cavitary lesions suspicious of septic emboli. CT angiogram no PE. CT abdomen and pelvis reviewed Check blood cultures, sputum cultures, mycobacterium tuberculosis Check echocardiogram Hold off MRI secondary to stefan placement from previous back surgery Tuberculosis precaution, check for PCR of tuberculosis if negative will discontinue airborne precaution Follow-up labs IV antibiotics Zosyn, vancomycin Ketorolac for pain Patient received Solu-Medrol 125 mg IV push in the ED. DuoNeb's scheduled when necessary. ID consult for further recommendations IV drug use Patient is been counseled Echocardiogram as above Follow-up labs as above ID consult for further recommendations. Recommends to check HIV status, hepatitis status, GC and chlamydia status, RPR Elevated LFTs, transaminitis CT of the abdomen and pelvis Trend LFTs Check hepatitis panel Hypokalemia. Encourage by mouth intake. Replace potassium. Monitor and replace as needed. DVT prop Lovenox Discussed with the patient yesterday and all her medical problems can be discussed with her mother as well. Code Status Full Code Discussed Condition With Patient, nurse Problem Qualifiers (1) Pneumonia: Qualified Codes: J18.9 - Pneumonia, unspecified organism Rasheeda Mahan MD Jun 28, 2017 09:35
[2017-06-28] MEDS ORDERED: PHARMACY ORDERED LAB ONE (09:45)
[2017-06-28] MEDS: VANCOMYCIN INJ 1,250 MG in SODIUM CHLOR 0.9% 250 ML INJ 250 ML IV SCH ×2 (10:19→18:00)
[2017-06-28] MEDS ORDERED: POTASSIUM CHLORIDE 10 MEQ CONTROLLED RELEASE TAB PO ONE (12:30)
--- NOTE | 2017-06-28 14:38 | PQ ---
Physician Query Response Document PATIENT: KAYE ARAGON : 1980 ADMIT DATE: 06/26/2017 12:25 AM DISCH DATE: RESPONDING PROVIDER #: [email or web address] QUERY TEXT: Conflicting Documentation Clarification There is CONFLICTING documentation of multiple diagnoses for the same clinical presentation appearing in the record. Please clarify the diagnosis/diagnoses - SEPSIS - STATED IN ID CONSULT Please also document if the condition is: -- Confirmed and current -- Confirmed, treated and resolved -- Ruled out -- Other, please specify The patient's Clinical Indicators include: 06-26-17 Admission Diagnosis Pneumonia, IVDU, r/o endocarditis Diagnoses: Chief Complaint: Fevers, chills, pneumonia, endocarditis PER 06-26-17 ID CONSULT Assessment and Plan Endocarditis per patient diagnosed at [facility]. Possible Staph bacteremia per partial records. Hypotension and lactic acidemia ? early Sepsis in partially treated patient (recd Vanco IV, Zosyn IV and Bactrim/Minocycline also as outpatient) Abnormal liver function tests: sepsis, ? Hep C Abnormal lung lesions on CXR ? septic emboli PER 06-27-17 ATTENDING MD PROGRESS NOTE Atypical chest pain/ Pleuritic Pain, acute ? Pneumonia, CAP vs Tuberculosis R/O endocarditis R/O septic embolus Patient does not meet SIRS or sepsis criteria for now. CLINICAL INDICATORS POA: TACHYCARDIA (HR 123) BANDEMIA (35 H) Query created by: Navya Adkins on 06/27/2017 9:57 AM RESPONSE TEXT: Patient with sepsis criteria on admission HR 123, bandemia 35, patient with known endocarditis and wi th CT chest suspicious of septic emboli. Patient with persistent cough on admission,. Patient also at risk of TB and had work up on admission. Records from [facility] pending. Antibiotics per ID specia list. Patient now with MRSA positive blood cultures 08/15. Repeat blood cultures. Currently on Vancomyc in. Will obtain records from [facility] as well. Electronically signed by: Rasheeda Mahan MD 06/28/2017 2:34 PM
[2017-06-28] MEDS: ACETAMINOPHEN 325 MG TAB PO PRN (16:47)
[2017-06-29 00:24] VITALS: BP 111/61; PULSE 86; RESP 18; TEMP 98.4; O2SAT 97
[2017-06-29] MEDS: ENOXAPARIN SODIUM 40 MG/0.4 ML SYRINGE SQ SCH (01:06)
[2017-06-29] MEDS: VANCOMYCIN INJ 1,250 MG in SODIUM CHLOR 0.9% 250 ML INJ 250 ML IV SCH ×2 (01:06→10:39)
[2017-06-29] MEDS: KETOROLAC TROMETHAMINE 30 MG/ML (IVP) VIAL IV PUSH PRN ×4 (01:06→21:03)
[2017-06-29] MEDS: ACETAMINOPHEN 325 MG TAB PO PRN ×3 (02:19→17:37)
[2017-06-29 05:21] VITALS: BP 108/69; PULSE 96; RESP 18; TEMP 97.8; O2SAT 97
[2017-06-29 07:26] LABS: BASOPHIL % 0.3 % (0.0-2.0); EOSINOPHIL # 0.1 TH/MM3 (0-0.4); EOSINOPHIL % 1.5 % (0.0-4.0); HEMATOCRIT 30.4 % (35.0-46.0); LYMPH % 21.4 % (9.0-44.0); MEAN CELL VOLUME 87.4 FL (80.0-100.0); MEAN CORPUSCULAR HEMOGLOBIN 29.4 PG (27.0-34.0); MEAN CORPUSCULAR HGB CONC 33.6 % (32.0-36.0); MONO % 11.1 % (0.0-8.0); NEUT % 65.7 % (16.0-70.0); PLATELET COUNT 285 TH/MM3 (150-450); RED BLOOD COUNT 3.48 MIL/MM3 (4.00-5.30); RED CELL DISTRIBUTION WIDTH 14.8 % (11.6-17.2); WHITE BLOOD COUNT 9.2 TH/MM3 (4.0-11.0)
[2017-06-29 07:33] LABS: HEMO FLAGS AUTO DIFF
[2017-06-29 07:57] LABS: BICARBONATE 26.2 MEQ/L (21.0-32.0); POTASSIUM 3.6 MEQ/L (3.5-5.1)
--- NOTE | 2017-06-29 08:01 | HHI.PR ---
Subjective Remarks With pain in her back. no fever ro chills.No n/v/d/c. Eating well now. No abdominal pain. Less chest pain. Objective Vitals Vital Signs Date Time Temp Pulse Resp B/P (MAP) Pulse Ox O2 Delivery O2 Flow Rate FiO2 06/29/17 05:21 97.8 96 18 108/69 (82) 97 06/29/17 00:24 98.4 86 18 111/61 (78) 97 06/28/17 22:59 73 06/28/17 21:30 97.7 80 16 110/51 (70) 99 06/28/17 16:21 97.8 75 20 105/65 (78) 06/28/17 12:00 97.6 79 20 111/59 (76) 97 06/28/17 08:00 97.8 71 20 92/53 (66) 99 I/O 06/28/17 06/28/17 06/28/17 06/29/17 06/29/17 06/29/17 07:00 15:00 23:00 07:00 15:00 23:00 Intake Total 1136 ml 480 ml 1050 ml 300 ml Balance 1136 ml 480 ml 1050 ml 300 ml Intake Oral 480 ml IV Total 1136 ml 1050 ml 300 ml # Voids 1 3 2 Result Diagram: 06/29/17 0601 06/29/17 0601 Imaging Last Impressions Tumor Localization 06/28/17 0000 Signed Impressions: Service Date/Time: Wednesday, June 28, 2017 13:12 - CONCLUSION: Negative white blood cell whole body scan. Binh Solitario MD Chest CT 06/26/17 0000 Signed Impressions: Service Date/Time: Monday, June 26, 2017 18:33 - CONCLUSION: Multiple masses including ill-defined masses and masses with cavitary change concerning for septic emboli. Shahid Wood MD Abdomen/Pelvis CT 06/26/17 0000 Signed Impressions: Service Date/Time: Monday, June 26, 2017 18:33 - CONCLUSION: 1. No acute abnormality is seen. 2. Postsurgical hardware and change in the lower lumbar spine. 3. Mild free fluid in the cul-de-sac. 4. Small focus of air seen in the right anterior abdominal wall subcutaneous fat. Shahid Wood MD Chest X-Ray 06/25/172039 Signed Impressions: Service Date/Time: Sunday, June 25, 2017 20:52 - CONCLUSION: 2 nodular areas seen in the right upper lung and right mid lung. These could be further evaluated with a CT examination the chest. Shahid Wood MD Objective Remarks GENERAL: This is a well-nourished, well-developed patient, in no apparent distress. CARDIOVASCULAR: Regular rate and rhythm without murmurs, gallops, or rubs. RESPIRATORY: Diminished bases. No wheezes, rales, or rhonchi. GASTROINTESTINAL: Abdomen soft, non-tender, nondistended. No guarding. Bowel sounds active 4. MUSCULOSKELETAL: Extremities without clubbing, cyanosis, or edema. NEUROLOGICAL: Awake and alert. Cranial nerves II through XII intact. Motor and sensory grossly within normal limits. Normal speech. A/P Problem List: (1) Pleuritic chest pain ICD Code: R07.81 - Pleurodynia (2) IVDU (intravenous drug user) ICD Code: F19.90 - Other psychoactive substance use, unspecified, uncomplicated Status: Acute (3) Bandemia ICD Code: D72.825 - Bandemia Status: Acute (4) Polysubstance abuse ICD Code: F19.10 - Other psychoactive substance abuse, uncomplicated Status: Acute (5) Anxiety ICD Code: F41.9 - Anxiety disorder, unspecified Status: Acute (6) Chronic back pain ICD Code: M54.9 - Dorsalgia, unspecified; G89.29 - Other chronic pain Status: Acute (7) Pneumonia ICD Code: J18.9 - Pneumonia, unspecified organism Status: Acute Assessment and Plan Patient is a 36-year-old female with primary medical history of IV drug abuse, anxiety, depression who came into the hospital for complaints of pleuritic chest pain, shortness of breath, fevers, chills. Atypical chest pain/ Pleuritic Pain, acute ? Pneumonia, CAP vs Tuberculosis R/O endocarditis R/O septic emboli Patient with sepsis criteria on admission HR 123, bandemia 35, patient with known endocarditis and with CT chest suspicious of septic emboli. Patient with persistent cough on admission. Patient also at risk of TB and had work up on admission. Antibiotics per ID specialist. Patient now with MRSA positive blood cultures 08/15. Repeat blood cultures. Currently on Vancomycin, ID ff. Will obtain records from [facility] as well. Partially treated with Zosyn and vancomycin in ED and [facility] ED. Lactic acid 2.5 on admission Patient states that he was diagnosed with pneumonia, endocarditis at [facility]. Pending medical records. Pleuritic pain increase with deep breathing and cough Chest x-ray showed 2 nodular areas seen in the right upper lung and right mid lung. This could be further evaluated with a CT examination. CT of the chest reviewed with cavitary lesions suspicious of septic emboli. CT angiogram no PE. CT abdomen and pelvis reviewed Check blood cultures, sputum cultures, mycobacterium tuberculosis Check echocardiogram Hold off MRI secondary to stefan placement from previous back surgery Tuberculosis precaution, PCR tuberculosis negative discontinue airborne precaution Follow-up labs Ketorolac for pain Patient received Solu-Medrol 125 mg IV push in the ED. DuoNeb's scheduled when necessary. ID consult for further recommendations WBC scan reviewed and negative. Per Dr Zavala if negative patient to have retirement antibiotic can arrange for OP Case management also consulted for Dc plan IV drug use Patient is been counseled Echocardiogram as above Follow-up labs as above ID consult for further recommendations. Recommends to check HIV status, hepatitis status, GC and chlamydia status, RPR Elevated LFTs, transaminitis CT of the abdomen and pelvis Trend LFTs Check hepatitis panel Hypokalemia. Encourage by mouth intake. Replace potassium. Monitor and replace as needed. DVT prop Lovenox Discussed with the patient and all her medical problems can be discussed with her mother as well. Code Status Full Code Discussed Condition With Patient, nurse, mother at bedside. Dr Zavala ID specialist. Plan for Telavancin in clinic if possible once a day per ID specialist however has to be approved. Likely DC Saturday, as arrangements needs to be done so patient will receive abx. Problem Qualifiers (1) Pneumonia: Qualified Codes: J18.9 - Pneumonia, unspecified organism Rasheeda Mahan MD Jun 29, 2017 08:01
[2017-06-29 09:00] LABS: BANDS 12 % (0-6); EOSINOPHILS 3 % (0-4); METAMYELOCYTES 1 % (0-1); MYELOCYTES 3 % (0-0); PLATELET ESTIMATE SMEAR NORMAL (NORMAL); PLATELET MORPHOLOGY NORMAL (NORMAL); POLYS (SEG NEUTROPHILS) 49 % (16-70); SCAN/DIFF FINAL DIFF MANUAL; WBC DIFF SAMPLE 100
[2017-06-29] MEDS: SODIUM CHLORIDE 0.9% FLUSH 10 ML FLUSH IV FLUSH SCH ×2 (09:00→21:36)
[2017-06-29] MEDS ORDERED: PHARMACY ORDERED LAB ONE (09:45)
--- NOTE | 2017-06-29 10:26 | RADRPT ---
EXAM DATE/TIME: 06/28/2017 13:12 [place] COMPARISON: CT ABDOMEN & PELVIS W CONTRAST, June 26, 2017, 18:33. INDICATIONS : Epidural abscess lumbar region. Back surgery. DOSE: 21 mCi Tc99m Ceretec labeled white blood cells IV PLANAR IMAGIN min, 3 hrs, 20 hrs MEDICAL HISTORY : Endocarditis, crystal meth and heroin. SURGICAL HISTORY : Tubal ligation. Back surgery. ENCOUNTER: Initial ACUITY: 1 week PAIN SCALE: 5/10 LOCATION: Bilateral Back. TECHNIQUE: Following the in vitro labeling of autologous white cells and reinjection, whole body scan was perfor med at specified times. FINDINGS: There is no abnormal biodistribution of radiotracer. CONCLUSION: Negative white blood cell whole body scan. Binh Solitario MD on June 29, 2017 at 10:19 Board Certified Radiologist. This report was verified electronically.
[2017-06-29] MEDS: SODIUM CHLOR 0.9% 1000 ML INJ 1,000 ML IV SCH (10:45)
[2017-06-29] MEDS ORDERED: TRAM50TA PO (13:34)
[2017-06-29] MEDS ORDERED: LACTCHW3 CHEW (13:35)
--- NOTE | 2017-06-29 13:35 | HHI.DS ---
Discharge Summary Admission Date Jun 26, 2017 at 00:25 Discharge Date: Jul 02, 2017 Admitting Diagnosis Pneumonia, IVDU, r/o endocarditis (1) Pleuritic chest pain ICD Code: R07.81 - Pleurodynia (2) IVDU (intravenous drug user) ICD Code: F19.90 - Other psychoactive substance use, unspecified, uncomplicated Status: Acute (3) Bandemia ICD Code: D72.825 - Bandemia Status: Acute (4) Polysubstance abuse ICD Code: F19.10 - Other psychoactive substance abuse, uncomplicated Status: Acute (5) Anxiety ICD Code: F41.9 - Anxiety disorder, unspecified Status: Acute (6) Chronic back pain ICD Code: M54.9 - Dorsalgia, unspecified; G89.29 - Other chronic pain Status: Acute (7) Pneumonia ICD Code: J18.9 - Pneumonia, unspecified organism Status: Acute Procedures none Brief History - From Admission Written by Kamilla Brice, acting as scribe for Dr. Mahan on 06/26/17 at 15: 05. Patient is a 36-year-old female with primary medical history of IV drug abuse, anxiety, depression who came into the hospital for complaints of pleuritic chest pain, shortness of breath, fevers, chills. As per patient she left AMA from [facility] today and she was diagnosed with pneumonia and endocarditis. Patient states that she was never diagnosed with endocarditis before. States that since last Saturday she's been having fevers, chills, cough, expectorating thick mucus. Patient states that she used to do IV drug heroin about 1 year and a half. States she started on crystal meth with last use about a month ago. Patient states that with crystal meth she is not using it every day just occasionally. States she wants to be helped on her chest pain that gets worse with taking deep breaths. She denies any headaches, dizziness. She denies abdominal pain or discomfort, nausea, vomiting, diarrhea, dysuria. Patient reports prior back surgery with stefan placement on her back. She also reports needles breaking in her arms. CBC/BMP: 06/29/17 0601 06/29/17 0601 Significant Findings Laboratory Tests Test 06/26/17 14:35 06/27/17 06:53 06/28/17 08:00 06/29/17 06:01 Red Blood Count 3.36 MIL/MM3 (4.00-5.30) 3.48 MIL/MM3 (4.00-5.30) Hemoglobin 9.7 GM/DL (11.6-15.3) 10.2 GM/DL (11.6-15.3) Hematocrit 29.6 % (35.0-46.0) 30.4 % (35.0-46.0) Total Protein 5.6 GM/DL (6.4-8.2) Albumin 2.1 GM/DL (3.4-5.0) Calcium Level 7.7 MG/DL (8.5-10.1) 8.1 MG/DL (8.5-10.1) Sodium Level 147 MEQ/L (136-145) Potassium Level 3.1 MEQ/L (3.5-5.1) Chloride Level 115 MEQ/L (98-107) 111 MEQ/L (98-107) C-Reactive Protein 6.14 MG/DL (0.00-0.30) Hepatitis C Antibody REACTIVE (NEGATIVE) Monocytes (%) (Auto) 11.1 % (0.0-8.0) Monocytes # (Auto) 1.0 TH/MM3 (0-0.9) Band Neutrophils % 12 % (0-6) Monocytes % 12 % (0-8) Myelocytes 3 % (0-0) Test 06/29/17 10:28 Imaging Last Impressions Tumor Localization 06/28/17 0000 Signed Impressions: Service Date/Time: Wednesday, June 28, 2017 13:12 - CONCLUSION: Negative white blood cell whole body scan. Binh Solitario MD Chest CT 06/26/17 0000 Signed Impressions: Service Date/Time: Monday, June 26, 2017 18:33 - CONCLUSION: Multiple masses including ill-defined masses and masses with cavitary change concerning for septic emboli. Shahid Wood MD Abdomen/Pelvis CT 06/26/17 0000 Signed Impressions: Service Date/Time: Monday, June 26, 2017 18:33 - CONCLUSION: 1. No acute abnormality is seen. 2. Postsurgical hardware and change in the lower lumbar spine. 3. Mild free fluid in the cul-de-sac. 4. Small focus of air seen in the right anterior abdominal wall subcutaneous fat. Shahid Wood MD Chest X-Ray 06/25/172039 Signed Impressions: Service Date/Time: Sunday, June 25, 2017 20:52 - CONCLUSION: 2 nodular areas seen in the right upper lung and right mid lung. These could be further evaluated with a CT examination the chest. Shahid Wood MD PE at Discharge GENERAL: This is a well-nourished, well-developed patient, in no apparent distress. CARDIOVASCULAR: Regular rate and rhythm without murmurs, gallops, or rubs. RESPIRATORY: Diminished bases. No wheezes, rales, or rhonchi. GASTROINTESTINAL: Abdomen soft, non-tender, nondistended. No guarding. Bowel sounds active 4. MUSCULOSKELETAL: Extremities without clubbing, cyanosis, or edema. NEUROLOGICAL: Awake and alert. Cranial nerves II through XII intact. Motor and sensory grossly within normal limits. Normal speech. Pt update on day of discharge No events overnight. Patien treceived abx and was dc to infusion center has appointment for IV abx at 8:30 today. Hospital Course Patient is a 36-year-old female with primary medical history of IV drug abuse, anxiety, depression who came into the hospital for complaints of pleuritic chest pain, shortness of breath, fevers, chills. Atypical chest pain/ Pleuritic Pain, acute. Resolving. ? Pneumonia, CAP vs Tuberculosis R/O endocarditis Septic emboli Patient with sepsis criteria on admission HR 123, bandemia 35, patient with known endocarditis and with CT chest suspicious of septic emboli. Patient with persistent cough on admission. Patient also at risk of TB and had work up on admission. Antibiotics per ID specialist. Patient now with MRSA positive blood cultures /. Repeat blood cultures. Currently on Vancomycin, ID ff. Patient was partially treated with Zosyn and vancomycin in ED at [facility]. Lactic acid 2.5 on admission, repeat trending down to normal. Patient states that he was diagnosed with pneumonia, endocarditis at [facility]. Pending medical records. Pleuritic pain increase with deep breathing and cough. Chest x-ray showed 2 nodular areas seen in the right upper lung and right mid lung. This could be further evaluated with a CT examination. CT of the chest reviewed with cavitary lesions suspicious of septic emboli. CT angiogram no PE. CT abdomen and pelvis reviewed Check blood cultures with 1/4 MRSA, , sputum cultures not obtainable, mycobacterium tuberculosis neg removed isolation Had echocardiogram in the other hospital. Hold off MRI secondary to stefan placement from previous back surgery Tuberculosis precaution, PCR tuberculosis negative discontinue airborne precaution Ketorolac for pain Patient received Solu-Medrol 125 mg IV push in the ED. DuoNeb's scheduled when necessary. ID consult for further recommendations WBC scan reviewed and negative. Per Dr Zavala if negative patient to have shelter antibiotic can arrange for OP. Patient is approved for telavancin and was DC home with home health to have telavancin at the clinic. Case management also consulted for DC plan IV drug use Patient is been counseled Echocardiogram as above Follow-up labs as above ID consult for further recommendations. Recommends to check HIV status, hepatitis status, GC and chlamydia status, RPR, all neg except Hep C . Patient to f/u as OP regarding hep C Elevated LFTs, transaminitis CT of the abdomen and pelvis Trend LFTs Check hepatitis panel. Patient with hep C. Patient to f/u as OP regarding hep C Hypokalemia. Encourage by mouth intake. Replace potassium. Monitor and replace as needed. DVT prop Lovenox Discussed with the patient and all her medical problems can be discussed with her mother as well. Code Status Full Code Discussed Condition With Patient, nurse. Discussed with Dr Zavala ID specialist patient to have telavancin IV abx in the clinic NOTE: DISCUSSED WITH THE PATIENT AND MOTHER AT BEDSIDE 06/29/17 AND ALSO REINFORCED WITH THE PATIENT DAILY REGARDING THE USE PICC LINE FOR ANTIBIOTIC ADMINISTRATION ONLY. PATIENT EXPRESSED UNDERSTANDING AND SAYS SHE WANTS TO GET BETTER AND SHE IS DONE WITH ILLICIT DRUG USE. Antibiotic at DC: Telavancin 630 mg IV every 24 hours. Start Treatment: Jun. Stop Treatment: Aug 07 2017 Patient improved discharged home in stable condition to follow up as OP with PCP and consultants. Pt Condition on Discharge: Stable Discharge Disposition: Disch w/ Home Health Serv Discharge Time: > 30 minutes Discharge Instructions DIET: Follow Instructions for: As Tolerated, No Restrictions Activities you can perform: Regular-No Restrictions Other Activity Instructions: USE PICC LINE FOR ANTIBIOTIC ADMINISTRATION ONLY. STOP URING ILLICIT DRUGS Follow up Referrals: PCP Follow-up - 2-3 Days with [facility] New Medications: Epinephrine Inj (Epinephrine Inj) 1 Mg/Ml (1 Ml) Inj 0.3 MG IV PUSH ONCE PRN for ALLERGIC REACTION, #1 VIAL Epinephrine Inj (Epinephrine Inj) 1 Mg/Ml (1 Ml) Inj 0.3 MG SQ ONCE PRN for ALLERGIC REACTION, #1 VIAL Give with any signs of respiratory distress. Hydrocortisone Inj (Solu-Cortef Inj) 250 Mg/2 Ml Inj 250 MG IV PUSH ONCE PRN for ALLERGIC REACTION, #1 VIAL 0 Refills Give over 30-60 seconds. Lactobacillus Acidophilus (Lactinex) 1 Chew 1 TAB CHEW DAILY for Nutritional Supplement, #30 TAB 0 Refills Telavancin Inj (Vibativ Inj) 750 Mg Inj 630 MG IV Q24H for Infection for 38 Days, BAG 0 Refills Tramadol (Tramadol) 50 Mg Tab 50 MG PO Q8H PRN for PAIN, #20 TAB 0 Refills Continued Medications: Fluconazole (Fluconazole) 150 Mg Tab 150 MG PO ONCE for Infection, #1 TAB 0 Refills Discontinued Medications: Sulfamethoxazole-Trimethoprim (Bactrim DS) 800-160 Mg Tab 1 TAB PO BID for Infection, #20 TAB 0 Refills Rasheeda Mahan MD Jun 29, 2017 13:35
--- NOTE | 2017-06-29 13:37 | HHI.FF ---
Face to Face Verification Diagnosis: (1) Endocarditis (2) Polysubstance abuse (3) Chronic back pain (4) Anxiety (5) Pleuritic chest pain (6) IVDU (intravenous drug user) (7) Bandemia (8) Pneumonia Home Health Nursing Order: Medical education Signs/symptoms of disease process Medication education-adverse effect Nursing assessment with vital signs IV medication administration I have seen patient Latanya Jeffers on 06/29/17. My clinical findings support the need for the requested home health care services because: Ltd mobility - disease progression I certify that my clinical findings support that this patient is homebound because: Post-op weakness Rasheeda Mahan MD Jun 29, 2017 13:37
[2017-06-29 16:34] VITALS: BP 142/64; PULSE 58; RESP 20; TEMP 97.9; O2SAT 98
[2017-06-29] MEDS: VANCOMYCIN 1,500 MG/NS 500 ML IV SCH ×2 (17:37)
[2017-06-29 20:00] VITALS: BP 120/60; PULSE 68; RESP 18; TEMP 98; O2SAT 98
[2017-06-29 21:00] VITALS: PULSE 65
[2017-06-29 21:23] VITALS: BP 92/60
[2017-06-30] VITALS: BP 124/63; PULSE 66; RESP 18; TEMP 98.2; O2SAT 98
[2017-06-30] MEDS: ENOXAPARIN SODIUM 40 MG/0.4 ML SYRINGE SQ SCH
[2017-06-30] MEDS: SODIUM CHLOR 0.9% 1000 ML INJ 1,000 ML IV SCH ×2 (02:20→15:33)
[2017-06-30] MEDS: ACETAMINOPHEN 325 MG TAB PO PRN (02:20)
[2017-06-30] MEDS: VANCOMYCIN 1,500 MG/NS 500 ML IV SCH ×6 (02:20→19:15)
[2017-06-30 04:00] VITALS: BP 116/57; PULSE 74; RESP 18; TEMP 97.8; O2SAT 97
[2017-06-30 08:11] VITALS: BP 117/62; PULSE 68; RESP 18; TEMP 97.4; O2SAT 97
[2017-06-30 08:22] LABS: BASOPHIL % 0.4 % (0.0-2.0); EOSINOPHIL # 0.2 TH/MM3 (0-0.4); EOSINOPHIL % 2.3 % (0.0-4.0); HEMATOCRIT 29.6 % (35.0-46.0); LYMPH % 26.1 % (9.0-44.0); LYMPHOCYTE # 2.2 TH/MM3 (1.0-4.8); MEAN CELL VOLUME 87.9 FL (80.0-100.0); MEAN CORPUSCULAR HEMOGLOBIN 29.1 PG (27.0-34.0); MEAN CORPUSCULAR HGB CONC 33.1 % (32.0-36.0); MONO % 11.9 % (0.0-8.0); NEUT % 59.3 % (16.0-70.0); PLATELET COUNT 300 TH/MM3 (150-450); RED BLOOD COUNT 3.37 MIL/MM3 (4.00-5.30); RED CELL DISTRIBUTION WIDTH 15.2 % (11.6-17.2); WHITE BLOOD COUNT 8.4 TH/MM3 (4.0-11.0)
[2017-06-30 08:27] LABS: HEMO FLAGS AUTO DIFF
[2017-06-30 08:35] LABS: BICARBONATE 24.2 MEQ/L (21.0-32.0); POTASSIUM 3.7 MEQ/L (3.5-5.1)
[2017-06-30 09:00] LABS: BANDS 13 % (0-6); EOSINOPHILS 1 % (0-4); METAMYELOCYTES 4 % (0-1); NEUTROPHIL # MANUAL DIFF 5.5 TH/MM3 (1.8-7.7); PLATELET ESTIMATE SMEAR NORMAL (NORMAL); PLATELET MORPHOLOGY NORMAL (NORMAL); POLYS (SEG NEUTROPHILS) 48 % (16-70); SCAN/DIFF FINAL DIFF MANUAL; WBC DIFF SAMPLE 100
[2017-06-30] MEDS: SODIUM CHLORIDE 0.9% FLUSH 10 ML FLUSH IV FLUSH SCH ×2 (09:00→21:00)
[2017-06-30] MEDS: KETOROLAC TROMETHAMINE 30 MG/ML (IVP) VIAL IV PUSH PRN ×3 (09:38→23:17)
--- NOTE | 2017-06-30 09:41 | HHI.PR ---
Subjective Remarks In bed, feeling tired. No cough , no fever or chills. Eating better. No nausea or vomiting. No diarrhea. Objective Vitals Vital Signs Date Time Temp Pulse Resp B/P (MAP) Pulse Ox O2 Delivery O2 Flow Rate FiO2 06/30/17 08:11 97.4 68 18 117/62 (80) 97 06/30/17 04:00 97.8 74 18 116/57 (76) 97 06/30/17 00:00 98.2 66 18 124/63 (83) 98 06/29/17 21:23 92/60 (71) 06/29/17 21:00 65 06/29/17 20:00 98.0 68 18 120/60 (80) 98 06/29/17 16:34 97.9 58 20 142/64 (90) 98 I/O 06/29/17 06/29/17 06/29/17 06/30/17 06/30/17 06/30/17 07:00 15:00 23:00 07:00 15:00 23:00 Intake Total 300 ml 250 ml Balance 300 ml 250 ml IV Total 300 ml 250 ml # Voids 2 4 Result Diagram: 06/30/17 0654 06/30/17 0654 Imaging Last Impressions Tumor Localization 06/28/17 0000 Signed Impressions: Service Date/Time: Wednesday, June 28, 2017 13:12 - CONCLUSION: Negative white blood cell whole body scan. Binh Solitario MD Chest CT 06/26/17 0000 Signed Impressions: Service Date/Time: Monday, June 26, 2017 18:33 - CONCLUSION: Multiple masses including ill-defined masses and masses with cavitary change concerning for septic emboli. Shahid Wood MD Abdomen/Pelvis CT 06/26/17 0000 Signed Impressions: Service Date/Time: Monday, June 26, 2017 18:33 - CONCLUSION: 1. No acute abnormality is seen. 2. Postsurgical hardware and change in the lower lumbar spine. 3. Mild free fluid in the cul-de-sac. 4. Small focus of air seen in the right anterior abdominal wall subcutaneous fat. Shahid Wood MD Chest X-Ray 06/25/172039 Signed Impressions: Service Date/Time: Sunday, June 25, 2017 20:52 - CONCLUSION: 2 nodular areas seen in the right upper lung and right mid lung. These could be further evaluated with a CT examination the chest. Shahid Wood MD Objective Remarks GENERAL: This is a well-nourished, well-developed patient, in no apparent distress. CARDIOVASCULAR: Regular rate and rhythm without murmurs, gallops, or rubs. RESPIRATORY: Diminished bases. No wheezes, rales, or rhonchi. GASTROINTESTINAL: Abdomen soft, non-tender, nondistended. No guarding. Bowel sounds active 4. MUSCULOSKELETAL: Extremities without clubbing, cyanosis, or edema. NEUROLOGICAL: Awake and alert. Cranial nerves II through XII intact. Motor and sensory grossly within normal limits. Normal speech. A/P Problem List: (1) Pleuritic chest pain ICD Code: R07.81 - Pleurodynia (2) IVDU (intravenous drug user) ICD Code: F19.90 - Other psychoactive substance use, unspecified, uncomplicated Status: Acute (3) Bandemia ICD Code: D72.825 - Bandemia Status: Acute (4) Polysubstance abuse ICD Code: F19.10 - Other psychoactive substance abuse, uncomplicated Status: Acute (5) Anxiety ICD Code: F41.9 - Anxiety disorder, unspecified Status: Acute (6) Chronic back pain ICD Code: M54.9 - Dorsalgia, unspecified; G89.29 - Other chronic pain Status: Acute (7) Pneumonia ICD Code: J18.9 - Pneumonia, unspecified organism Status: Acute Assessment and Plan Patient is a 36-year-old female with primary medical history of IV drug abuse, anxiety, depression who came into the hospital for complaints of pleuritic chest pain, shortness of breath, fevers, chills. Atypical chest pain/ Pleuritic Pain, acute ? Pneumonia, CAP vs Tuberculosis R/O endocarditis R/O septic emboli Patient with sepsis criteria on admission HR 123, bandemia 35, patient with known endocarditis and with CT chest suspicious of septic emboli. Patient with persistent cough on admission. Patient also at risk of TB and had work up on admission. Antibiotics per ID specialist. Patient now with MRSA positive blood cultures 08/15. Repeat blood cultures. Currently on Vancomycin, ID ff. Will obtain records from [facility] as well. Partially treated with Zosyn and vancomycin in ED and [facility] ED. Lactic acid 2.5 on admission Patient states that he was diagnosed with pneumonia, endocarditis at [facility]. Pending medical records. Pleuritic pain increase with deep breathing and cough Chest x-ray showed 2 nodular areas seen in the right upper lung and right mid lung. This could be further evaluated with a CT examination. CT of the chest reviewed with cavitary lesions suspicious of septic emboli. CT angiogram no PE. CT abdomen and pelvis reviewed Check blood cultures, sputum cultures, mycobacterium tuberculosis Check echocardiogram Hold off MRI secondary to stefan placement from previous back surgery Tuberculosis precaution, PCR tuberculosis negative discontinue airborne precaution Follow-up labs Ketorolac for pain Patient received Solu-Medrol 125 mg IV push in the ED. DuoNeb's scheduled when necessary. ID consult for further recommendations WBC scan reviewed and negative. Per Dr Zavala if negative patient to have shelter antibiotic can arrange for OP Case management also consulted for Dc plan IV drug use Patient is been counseled Echocardiogram as above Follow-up labs as above ID consult for further recommendations. Recommends to check HIV status, hepatitis status, GC and chlamydia status, RPR Elevated LFTs, transaminitis CT of the abdomen and pelvis Trend LFTs Check hepatitis panel Hypokalemia. Encourage by mouth intake. Replace potassium. Monitor and replace as needed. DVT prop Lovenox Discussed with the patient and all her medical problems can be discussed with her mother as well. Code Status Full Code Discussed Condition With Patient, nurse. Discussed with Dr Zavala ID specialist. Plan for Telavancin in clinic if possible once a day per ID specialist however has to be approved. Likely DC Saturday, as arrangements needs to be done so patient will receive abx. NOTE: DISCUSSED WITH THE PATIENT AND MOTHER AT BEDSIDE 06/29/17 AND ALSO REINFORCED WITH THE PATIENT DAILY REGARDING THE USE PICC LINE FOR ANTIBIOTIC ADMINISTRATION ONLY. PATIENT EXPRESSED UNDERSTANDING AND SAYS SHE WANTS TO GET BETTER AND SHE IS DONE WITH ILLICIT DRUG USE. Problem Qualifiers (1) Pneumonia: Qualified Codes: J18.9 - Pneumonia, unspecified organism Rasheeda Mahan MD Jun 30, 2017 09:41
[2017-06-30 12:00] VITALS: BP 121/56; PULSE 61; RESP 16; TEMP 97.8; O2SAT 97
[2017-06-30 16:00] VITALS: BP 118/67; PULSE 52; RESP 18; TEMP 97.9; O2SAT 96
[2017-06-30] MEDS ORDERED: PHARMACY ORDERED LAB ONE (17:45)
[2017-06-30 20:00] VITALS: BP 113/56; PULSE 83; PULSE 93; RESP 18; TEMP 98.2; O2SAT 97
[2017-07-01] VITALS (8 sets, daily range): BP systolic 102–122; BP diastolic 57–71; PULSE 57–85; RESP 16–18; TEMP 97.3–97.9; O2SAT 98–100
[2017-07-01] MEDS: ENOXAPARIN SODIUM 40 MG/0.4 ML SYRINGE SQ SCH (00:17)
[2017-07-01] MEDS: VANCOMYCIN 1,500 MG/NS 500 ML IV SCH ×6 (03:02→17:51)
[2017-07-01] MEDS: KETOROLAC TROMETHAMINE 30 MG/ML (IVP) VIAL IV PUSH PRN ×3 (06:13→18:40)
[2017-07-01] MEDS: SODIUM CHLORIDE 0.9% FLUSH 10 ML FLUSH IV FLUSH SCH ×2 (08:15→20:45)
[2017-07-01] MEDS: SODIUM CHLOR 0.9% 1000 ML INJ 1,000 ML IV SCH (09:02)
--- NOTE | 2017-07-01 11:01 | PD.PN.STU ---
Subjective Remarks Patient found in chair painting her fingernails and listening to music. No new complaints. Denies fever, chills, SOB, chest pain. No nausea, vomiting, diarrhea or constipation. Reports she is eating well. She reemphasized that she is done with illicit drug use and wants to get better. Objective Vitals Vital Signs Date Time Temp Pulse Resp B/P (MAP) Pulse Ox O2 Delivery O2 Flow Rate FiO2 07/01/17 09:00 72 07/01/17 08:31 97.3 57 18 122/58 (79) 98 07/01/17 04:00 97.6 78 18 113/57 (75) 100 07/01/17 00:00 97.6 74 16 102/60 (74) 98 06/30/17 20:00 98.2 83 18 113/56 (75) 97 06/30/17 20:00 93 06/30/17 16:00 97.9 52 18 118/67 (84) 96 06/30/17 12:00 97.8 61 16 121/56 (77) 97 06/30/17 11:00 18 I/O 06/30/17 06/30/17 06/30/17 07/01/17 07/01/17 07/01/17 07:00 15:00 23:00 07:00 15:00 23:00 Intake Total 480 ml 1115 ml Balance 480 ml 1115 ml Intake Oral 480 ml 600 ml IV Total 515 ml # Voids 4 3 3 Result Diagram: 06/30/17 0654 07/01/17 0818 Objective Remarks GENERAL: This is a well-nourished, well-developed patient, in no apparent distress. Pleasant and cooperative. SKIN: Multiple tattoos. CARDIOVASCULAR: Regular rate and rhythm without murmurs, gallops, or rubs. RESPIRATORY: Diminished bases. No wheezes, rales, or rhonchi. GASTROINTESTINAL: Abdomen soft, non-tender, nondistended. No guarding. Bowel sounds active 4. MUSCULOSKELETAL: Extremities without clubbing, cyanosis, or edema. NEUROLOGICAL: Awake and alert. Cranial nerves II through XII intact. Motor and sensory grossly within normal limits. Normal speech. A/P Assessment and Plan Patient is a 36-year-old female with primary medical history of IV drug abuse, anxiety, depression who came into the hospital for complaints of pleuritic chest pain, shortness of breath, fevers, chills. Atypical chest pain/ Pleuritic Pain, acute ? Pneumonia, CAP vs Tuberculosis R/O endocarditis R/O septic emboli Patient with sepsis criteria on admission HR 123, bandemia 35, patient with known endocarditis and with CT chest suspicious of septic emboli. Patient with persistent cough on admission. Patient also at risk of TB and had work up on admission. Antibiotics per ID specialist. Patient now with MRSA positive blood cultures 08/15. Repeat blood cultures. Currently on Vancomycin, ID ff. Will obtain records from [facility] as well. Partially treated with Zosyn and vancomycin in ED and [facility] ED. Lactic acid 2.5 on admission Patient states that he was diagnosed with pneumonia, endocarditis at [facility]. Pending medical records. Pleuritic pain increase with deep breathing and cough Chest x-ray showed 2 nodular areas seen in the right upper lung and right mid lung. This could be further evaluated with a CT examination. CT of the chest reviewed with cavitary lesions suspicious of septic emboli. CT angiogram no PE. CT abdomen and pelvis reviewed Check blood cultures, sputum cultures, mycobacterium tuberculosis Check echocardiogram Hold off MRI secondary to stefan placement from previous back surgery Tuberculosis precaution, PCR tuberculosis negative discontinue airborne precaution Follow-up labs Ketorolac for pain Patient received Solu-Medrol 125 mg IV push in the ED. DuoNeb's scheduled when necessary. ID consult for further recommendations WBC scan reviewed and negative. Per Dr Zavala if negative patient to have care home antibiotic can arrange for OP Case management also consulted for Dc plan IV drug use Patient is been counseled Echocardiogram as above Follow-up labs as above ID consult for further recommendations. Recommends to check HIV status, hepatitis status, GC and chlamydia status, RPR Elevated LFTs, transaminitis CT of the abdomen and pelvis Trend LFTs Check hepatitis panel Hypokalemia. Encourage by mouth intake. Replace potassium. Monitor and replace as needed. DVT prop Lovenox Discussed with the patient and all her medical problems can be discussed with her mother as well. Code Status Full Code Discussed Condition With Patient, nurse. Discussed with Dr Zavala ID specialist. Plan for Telavancin in clinic if possible once a day per ID specialist however has to be approved. Likely DC Saturday, as arrangements needs to be done so patient will receive abx. Discussed with Dr Zavala ID specialist. Telavancin was approved. NOTE: DISCUSSED WITH THE PATIENT AND MOTHER AT BEDSIDE 06/29/17 AND ALSO REINFORCED WITH THE PATIENT DAILY REGARDING THE USE PICC LINE FOR ANTIBIOTIC ADMINISTRATION ONLY. PATIENT EXPRESSED UNDERSTANDING AND SAYS SHE WANTS TO GET BETTER AND SHE IS DONE WITH ILLICIT DRUG USE. Patient was seen and examined , note reviewed, case discussed at length with Miss Janeen Wolff MS III. Janeen Kingsley M3 Jul 01, 2017 11:01 Rasheeda Mahan MD Jul 01, 2017 15:25
--- NOTE | 2017-07-01 11:04 | HHI.PR ---
Subjective Remarks Ambulating in the room and appears in not acute distress at this time. Has some chest pain controlled by medications. No fever or chills. No nausea vomiting diarrhea or constipation. Objective Vitals Vital Signs Date Time Temp Pulse Resp B/P (MAP) Pulse Ox O2 Delivery O2 Flow Rate FiO2 07/01/17 09:00 72 07/01/17 08:31 97.3 57 18 122/58 (79) 98 07/01/17 04:00 97.6 78 18 113/57 (75) 100 07/01/17 00:00 97.6 74 16 102/60 (74) 98 06/30/17 20:00 98.2 83 18 113/56 (75) 97 06/30/17 20:00 93 06/30/17 16:00 97.9 52 18 118/67 (84) 96 06/30/17 12:00 97.8 61 16 121/56 (77) 97 I/O 06/30/17 06/30/17 06/30/17 07/01/17 07/01/17 07/01/17 07:00 15:00 23:00 07:00 15:00 23:00 Intake Total 480 ml 1115 ml Balance 480 ml 1115 ml Intake Oral 480 ml 600 ml IV Total 515 ml # Voids 4 3 3 Result Diagram: 06/30/17 0654 07/01/17 0818 Imaging Last Impressions Tumor Localization 06/28/17 0000 Signed Impressions: Service Date/Time: Wednesday, June 28, 2017 13:12 - CONCLUSION: Negative white blood cell whole body scan. Binh Solitario MD Chest CT 06/26/17 0000 Signed Impressions: Service Date/Time: Monday, June 26, 2017 18:33 - CONCLUSION: Multiple masses including ill-defined masses and masses with cavitary change concerning for septic emboli. Shahid Wood MD Abdomen/Pelvis CT 06/26/17 0000 Signed Impressions: Service Date/Time: Monday, June 26, 2017 18:33 - CONCLUSION: 1. No acute abnormality is seen. 2. Postsurgical hardware and change in the lower lumbar spine. 3. Mild free fluid in the cul-de-sac. 4. Small focus of air seen in the right anterior abdominal wall subcutaneous fat. Shahid Wood MD Chest X-Ray 06/25/172039 Signed Impressions: Service Date/Time: Sunday, June 25, 2017 20:52 - CONCLUSION: 2 nodular areas seen in the right upper lung and right mid lung. These could be further evaluated with a CT examination the chest. Shahid Wood MD Objective Remarks GENERAL: This is a well-nourished, well-developed patient, in no apparent distress. CARDIOVASCULAR: Regular rate and rhythm without murmurs, gallops, or rubs. RESPIRATORY: Diminished bases. No wheezes, rales, or rhonchi. GASTROINTESTINAL: Abdomen soft, non-tender, nondistended. No guarding. Bowel sounds active 4. MUSCULOSKELETAL: Extremities without clubbing, cyanosis, or edema. NEUROLOGICAL: Awake and alert. Cranial nerves II through XII intact. Motor and sensory grossly within normal limits. Normal speech. A/P Problem List: (1) Pleuritic chest pain ICD Code: R07.81 - Pleurodynia (2) IVDU (intravenous drug user) ICD Code: F19.90 - Other psychoactive substance use, unspecified, uncomplicated Status: Acute (3) Bandemia ICD Code: D72.825 - Bandemia Status: Acute (4) Polysubstance abuse ICD Code: F19.10 - Other psychoactive substance abuse, uncomplicated Status: Acute (5) Anxiety ICD Code: F41.9 - Anxiety disorder, unspecified Status: Acute (6) Chronic back pain ICD Code: M54.9 - Dorsalgia, unspecified; G89.29 - Other chronic pain Status: Acute (7) Pneumonia ICD Code: J18.9 - Pneumonia, unspecified organism Status: Acute Assessment and Plan Patient is a 36-year-old female with primary medical history of IV drug abuse, anxiety, depression who came into the hospital for complaints of pleuritic chest pain, shortness of breath, fevers, chills. Atypical chest pain/ Pleuritic Pain, acute ? Pneumonia, CAP vs Tuberculosis R/O endocarditis R/O septic emboli Patient with sepsis criteria on admission HR 123, bandemia 35, patient with known endocarditis and with CT chest suspicious of septic emboli. Patient with persistent cough on admission. Patient also at risk of TB and had work up on admission. Antibiotics per ID specialist. Patient now with MRSA positive blood cultures 08/15. Repeat blood cultures. Currently on Vancomycin, ID ff. Will obtain records from [facility] as well. Partially treated with Zosyn and vancomycin in ED and [facility] ED. Lactic acid 2.5 on admission Patient states that he was diagnosed with pneumonia, endocarditis at [facility]. Pending medical records. Pleuritic pain increase with deep breathing and cough Chest x-ray showed 2 nodular areas seen in the right upper lung and right mid lung. This could be further evaluated with a CT examination. CT of the chest reviewed with cavitary lesions suspicious of septic emboli. CT angiogram no PE. CT abdomen and pelvis reviewed Check blood cultures, sputum cultures, mycobacterium tuberculosis Check echocardiogram Hold off MRI secondary to stefan placement from previous back surgery Tuberculosis precaution, PCR tuberculosis negative discontinue airborne precaution Follow-up labs Ketorolac for pain Patient received Solu-Medrol 125 mg IV push in the ED. DuoNeb's scheduled when necessary. ID consult for further recommendations WBC scan reviewed and negative. Per Dr Zavala if negative patient to have care home antibiotic can arrange for OP Case management also consulted for Dc plan IV drug use Patient is been counseled Echocardiogram as above Follow-up labs as above ID consult for further recommendations. Recommends to check HIV status, hepatitis status, GC and chlamydia status, RPR Elevated LFTs, transaminitis CT of the abdomen and pelvis Trend LFTs Check hepatitis panel Hypokalemia. Encourage by mouth intake. Replace potassium. Monitor and replace as needed. DVT prop Lovenox Discussed with the patient and all her medical problems can be discussed with her mother as well. Code Status Full Code Discussed Condition With Patient, nurse. Discussed with Dr Zavala ID specialist. Plan for Telavancin in clinic if possible once a day per ID specialist however has to be approved. Likely DC today if arrangements done. Arrangements and approval by insurance needs to be done so patient will receive abx. NOTE: DISCUSSED WITH THE PATIENT AND MOTHER AT BEDSIDE 06/29/17 AND ALSO REINFORCED WITH THE PATIENT DAILY REGARDING THE USE PICC LINE FOR ANTIBIOTIC ADMINISTRATION ONLY. PATIENT EXPRESSED UNDERSTANDING AND SAYS SHE WANTS TO GET BETTER AND SHE IS DONE WITH ILLICIT DRUG USE. DC plan: pending insurance approval .ID Dr Zavala ff also for DC plan. CM ff as well Problem Qualifiers (1) Pneumonia: Qualified Codes: J18.9 - Pneumonia, unspecified organism Rasheeda Mahan MD Jul 01, 2017 11:04
[2017-07-01] MEDS ORDERED: VIBA750I IV (12:46)
[2017-07-01] MEDS ORDERED: SOLU250I IV PUSH (12:47)
[2017-07-01] MEDS ORDERED: EPIN1INJ21 SQ (12:47)
[2017-07-01] MEDS ORDERED: EPIN1INJ21 IV PUSH (12:47)
--- NOTE | 2017-07-01 12:48 | HHI.FF ---
Infusion Therapy Location of Infusion Therapy: Ambulatory Infusion Therapy Order Patient Information Appointment Date: Jul 01, 2017 Patient Weight 63.5 kg Diagnosis: Diagnosis MRSA endocarditis Septic pulmonary emboli. Coded Allergies: No Known Allergies (Unverified Allergy, Unknown, 06/26/17) MRI PRECAUTION (Verified Adverse Reaction, Severe, BROKEN OFF NEEDLES IN ARM. DR. Smiley ODELL. 06/26/17 LRS, 06/26/17) Administer Medication Telavancin 630 mg IV every 24 hours Start Treatment: Jul 01, 2017 Stop Treatment: Aug 07, 2017 Additional Information Venous access: PICC Line Additional Instructions [x] Peripheral flush and dressing changes per protocol [x] Implanted port and central softlines supervisor: * Implanted port: 10 ml Normal Saline followed by 5 ml Heparin 100 units/ml Heparin flush after each use and monthly to maintain. [] May leave port accessed during therapy. [] May leave peripheral site accessed for duration of therapy. [x] If patient has SOB or respiratory distress, check oxygen saturation. If less than 90% or clinical signs of respiratory distress, administer oxygen at 2 L/min. via nasal cannula and notify physician. [x] Anaphylaxis/Reaction orders: * Stop infusion. * Keep IV line open with saline flush. * Notify physician. * Monitor vital signs every 15 minutes until symptoms resolve. * Check Oxygen saturation; Oxygen at 2 L/min. via nasal cannula if less than 90% or clinical signs of respiratory distress. * Administer diphenhydramine (Benadryl) 25 mg IV STAT, (unless patient has received as pre-med). May repeat once, if necessary. * Solu-Cortef 250 mg IVP over 30-60 seconds, use 100 mg vials for each dissolution. * Epinephrine (1mg/1 ml) 0.3 mg subcutaneously or IVP now with any signs of respiratory distress. * Check with physician for new additional pre-med orders if patient is re- challenged or re-treated. [x] May remove PICC line when treatment complete, after confirming with Physician. [x] If the patient is admitted to the hospital, the ED, or transferred via [facility] , complete transfer form including medication reconciliation order sheet. Laboratory Tests Weekly Labs: CBC w/diff, Creatinine (twice a week.), CRP, LFT's (Hepatic function test) Additional Information Please draw weekly labs, call with abnormals, change in clinical condition or problems to: or covering ID Physician Follow up appt: Follow up with PCP[facility]. Follow up with other MDs as planned. Counseling: Counseled about medication side effects Counseled about PICC line care and hand hygiene. Counseled about Cdiff. Kimberlee Zavala MD Jul 01, 2017 12:48
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
--- NOTE | 2017-07-01 17:54 | RADRPT ---
EXAM DATE/TIME: 07/01/2017 17:37 [place] COMPARISON: CHEST SINGLE AP, January 14, 2017, 19:43. INDICATIONS : Post PICC placement. MEDICAL HISTORY : Cardiovascular disease. SURGICAL HISTORY : Tubal ligation. ENCOUNTER: Initial ACUITY: 1 day PAIN SCORE: 0/10 LOCATION: Bilateral chest FINDINGS: Portable AP view of the chest demonstrates a normal-sized cardiac silhouette. Right upper extremity P ICC distal tip is in the SVC. There is airspace consolidation in the left lower lobe. No pneumothorax is present. CONCLUSION: 1. Right upper extremity PICC distal tip in appropriate position within the SVC. 2. There is left lower lobe airspace consolidation. Shahid Yi MD on July 01, 2017 at 17:51 Board Certified Radiologist. This report was verified electronically.
[2017-07-02] MEDS: ENOXAPARIN SODIUM 40 MG/0.4 ML SYRINGE SQ SCH
[2017-07-02 00:23] VITALS: BP 101/52; PULSE 74; RESP 18; TEMP 98.3; O2SAT 97
[2017-07-02] MEDS ORDERED: PHARMACY ORDERED LAB ONE (01:45)
[2017-07-02] MEDS: KETOROLAC TROMETHAMINE 30 MG/ML (IVP) VIAL IV PUSH PRN ×2 (01:54→07:35)
[2017-07-02] MEDS: VANCOMYCIN 1,500 MG/NS 500 ML IV SCH ×2 (01:54)
[2017-07-02 05:05] VITALS: BP 109/78; PULSE 83; RESP 18; TEMP 97.7; O2SAT 98
[2017-07-02 08:05] VITALS: BP 118/64; PULSE 76; RESP 16; TEMP 98.3; O2SAT 100
== END 2017-07-02 08:00 | disposition home or self-care (01) | DRG 871 ==
LOC: NEPE 20:09 → NEDA 06-26 00:25 → NEDH 06-26 04:49 → N05A 06-26 16:51
PROVIDERS: ADMIT Hospitalist; ATTEND Hospitalist
PROC: 02HV33Z Insertion of Infusion Device into Superior Vena Cava, Percutaneous Approach (ICD-10-PCS; principal; 2017-07-01)
DX: A41.02 Sepsis due to Methicillin resistant Staphylococcus aureus (principal); J18.9 Pneumonia, unspecified organism; E87.2 Acidosis; I38 Endocarditis, valve unspecified; F32.9 Major depressive disorder, single episode, unspecified; G89.29 Other chronic pain; M54.9 Dorsalgia, unspecified; E87.6 Hypokalemia; M19.90 Unspecified osteoarthritis, unspecified site; B19.20 Unspecified viral hepatitis C without hepatic coma; F11.10 Opioid abuse, uncomplicated; F12.90 Cannabis use, unspecified, uncomplicated; F15.10 Other stimulant abuse, uncomplicated; F17.210 Nicotine dependence, cigarettes, uncomplicated; F41.9 Anxiety disorder, unspecified; Z59.0 Homelessness; Z72.89 Other problems related to lifestyle; Z91.410 Personal history of adult physical and sexual abuse
CPT/HCPCS: 71010; 71020; 71260; 74177; 76937; 78806; 80048; 80053; 80074; 80202; 81001; 82550; 82565; 83605; 84484; 85007; 85025; 85027; 85610; 85730; 86140; 86403; 86592; 86703; 87015; 87040; 87070; 87116; 87147; 87186; 87205; 87206; 87491; 87556; 87591; 87798; 93005; 93306; 96361; 96365; 96375; A9569; J0690; J1650; J1885; J2543; J2930; J3370; J7030; J7040; J7050; Q9963; Q9967

== ENCOUNTER 2017-07-26 12:49 | Emergency (ER) | payer MEDICARE ==
[~2017-07-26 12:49] MED LIST changes: -BACT800T5 PO; +EPIN1INJ21 IV PUSH; +EPIN1INJ21 SQ; +LACTCHW3 CHEW; +SOLU250I IV PUSH; +TRAM50TA PO; +VIBA750I IV
[2017-07-26 12:51] VITALS: BP 114/57; PULSE 114; RESP 20; TEMP 98.6; O2SAT 99
[2017-07-26 13:24] VITALS: BP 109/55; PULSE 99; RESP 17; O2SAT 98
[2017-07-26] MEDS ORDERED: SODIUM CHLORIDE 0.9% FLUSH 10 ML FLUSH IVF PRN (13:30)
--- NOTE | 2017-07-26 13:37 | PD ---
HPI Chief Complaint: Medical Clearance Time Seen by Provider: 13:34 Travel History International Travel<30 days: No Contact w/Intl Traveler<30days: No Traveled to known affect area: No History of Present Illness HPI 36-year-old female patient with history of IV drug abuse, endocarditis currently on vancomycin through PICC line, presents to the ER today because of dyspnea on exertion, chest discomfort which she currently rates at a 5 out of 10. She has not been running fevers or other symptoms but she states that she has significant shortness of breath and fatigue with little activity. She denies any new IV drug use. Modifying Factors: None Associated Signs & Symptoms: Increased fatigue, dyspnea on exertion, chest discomfort Risk Factors: Endocarditis currently on treatment, IV drug use PFSH Past Medical History Arthritis: Yes Asthma: Yes (as a child) Anxiety: Yes Depression: Yes Cancer: No Cardiovascular Problems: Yes (ENDOCARDITIS) COPD: No Diminished Hearing: No Endocrine: No Genitourinary: No Immune Disorder: No Implanted Vascular Access Dvce: Yes (Picc line) Musculoskeletal: Yes Neurologic: No Psychiatric: Yes Reproductive: No Respiratory: Yes Sleep Apnea: No Influenza Vaccination: No ?: Not : 4 Para: 4 Tubal Ligation: Yes Past Surgical History Abdominal Surgery: No Body Medical Devices: hardware in back Cardiac Surgery: No Ear Surgery: No Endocrine Surgery: No Eye Surgery: No Genitourinary Surgery: No Gynecologic Surgery: Yes (tubes tied) Oral Surgery: No Thoracic Surgery: No Other Surgery: Yes Social History Alcohol Use: Yes (occas) Tobacco Use: Yes (5-10 CIGARETTES/DAY) Substance Use: No (marijuana;hx of heroin) Allergies-Medications (Allergen,Severity, Reaction): Coded Allergies: No Known Allergies (Verified Allergy, Unknown, 07/26/17) MRI PRECAUTION (Verified Adverse Reaction, Severe, BROKEN OFF NEEDLES IN ARM. DR. Smiley ODELL. 06/26/17 LRS, 07/26/17) Reported Meds & Prescriptions Reported Meds & Active Scripts Active Epinephrine Inj 1 Mg/Ml (1 Ml) Inj 0.3 Mg SQ ONCE PRN Give with any signs of respiratory distress. Epinephrine Inj 1 Mg/Ml (1 Ml) Inj 0.3 Mg IV PUSH ONCE PRN Vibativ Inj (Telavancin) 750 Mg Inj 630 Mg IV Q24H 38 Days Review of Systems Except as stated in HPI: all other systems reviewed are Neg Physical Exam Narrative GENERAL: Well-developed middle age white female patient currently in mild distress. Awake and oriented 3. SKIN: Focused skin assessment warm/dry. HEAD: Atraumatic. Normocephalic. EYES: Pupils equal and round. No scleral icterus. No injection or drainage. ENT: No nasal bleeding or discharge. Mucous membranes pink and moist. NECK: Trachea midline. No JVD. CARDIOVASCULAR: Regular rate and rhythm. No murmur appreciated. RESPIRATORY: No accessory muscle use. Decreased throughout bilaterally. Breath sounds equal bilaterally. GASTROINTESTINAL: Abdomen soft, non-tender, nondistended. Hepatic and splenic margins not palpable. MUSCULOSKELETAL: No obvious deformities. No clubbing. No cyanosis. No edema. NEUROLOGICAL: Awake and alert. No obvious cranial nerve deficits. Motor grossly within normal limits. Normal speech. PSYCHIATRIC: Appropriate mood and affect; insight and judgment normal. Data Data Last Documented VS Vital Signs Date Time Temp Pulse Resp B/P (MAP) Pulse Ox O2 Delivery O2 Flow Rate FiO2 07/26/17 13:41 104 16 119/53 (75) 99 Room Air 120/55 (76) 07/26/17 12:51 98.6 Orders Orders Electrocardiogram (07/26/17 13:28) Basic Metabolic Panel (Bmp) (07/26/17 13:28) Ckmb (Isoenzyme) Profile (07/26/17 13:28) Complete Blood Count With Diff (07/26/17 13:28) Magnesium (Mg) (07/26/17 13:28) Prothrombin Time / Inr (Pt) (07/26/17 13:28) Act Partial Throm Time (Ptt) (07/26/17 13:28) Troponin I (07/26/17 13:28) Chest, Single Ap (07/26/17 13:28) Ecg Monitoring (07/26/17 13:28) Bilateral Bp Monitoring (07/26/17 13:28) Iv Access Insert/Monitor (07/26/17 13:28) Oximetry (07/26/17 13:28) Oxygen Administration (07/26/17 13:28) Sodium Chloride 0.9% Flush (Ns Flush) (07/26/17 13:30) Blood Culture (07/26/17 13:28) Echo 2d Limited (07/26/17 14:38) Ed Discharge Order (07/26/17 16:31) Telavancin Inj (Vibativ Inj) (07/26/17 16:45) Telavancin Inj (Vibativ Inj) (07/26/17 16:45) Labs Laboratory Tests Test 07/26/17 13:34 White Blood Count 7.7 TH/MM3 Red Blood Count 3.67 MIL/MM3 Hemoglobin 10.4 GM/DL Hematocrit 31.6 % Mean Corpuscular Volume 86.3 FL Mean Corpuscular Hemoglobin 28.5 PG Mean Corpuscular Hemoglobin Concent 33.0 % Red Cell Distribution Width 14.7 % Platelet Count 314 TH/MM3 Mean Platelet Volume 7.7 FL Neutrophils (%) (Auto) 53.3 % Lymphocytes (%) (Auto) 38.6 % Monocytes (%) (Auto) 6.9 % Eosinophils (%) (Auto) 0.8 % Basophils (%) (Auto) 0.4 % Neutrophils # (Auto) 4.1 TH/MM3 Lymphocytes # (Auto) 3.0 TH/MM3 Monocytes # (Auto) 0.5 TH/MM3 Eosinophils # (Auto) 0.1 TH/MM3 Basophils # (Auto) 0.0 TH/MM3 CBC Comment DIFF FINAL Differential Comment Prothrombin Time 10.5 SEC Prothromb Time International Ratio 1.0 RATIO Activated Partial Thromboplast Time 24.7 SEC Blood Urea Nitrogen 14 MG/DL Creatinine 0.84 MG/DL Random Glucose 94 MG/DL Calcium Level 8.3 MG/DL Magnesium Level 1.9 MG/DL Sodium Level 142 MEQ/L Potassium Level 3.7 MEQ/L Chloride Level 109 MEQ/L Carbon Dioxide Level 28.4 MEQ/L Anion Gap 5 MEQ/L Estimat Glomerular Filtration Rate 76 ML/MIN Total Creatine Kinase 75 U/L Troponin I LESS THAN 0.02 NG/ML MDM Medical Decision Making Medical Screen Exam Complete: Yes Emergency Medical Condition: Yes Medical Record Reviewed: Yes Interpretation(s) EKG shows sinus tachycardia rate of 100 bpm with no signs of acute ST-T changes. Laboratory Tests Test 07/26/17 13:34 Red Blood Count 3.67 MIL/MM3 (4.00-5.30) Hemoglobin 10.4 GM/DL (11.6-15.3) Hematocrit 31.6 % (35.0-46.0) Calcium Level 8.3 MG/DL (8.5-10.1) Chloride Level 109 MEQ/L (98-107) Estimat Glomerular Filtration Rate 76 ML/MIN (>89) Troponin I LESS THAN 0.02 NG/ML Last 24 hours Impressions Chest X-Ray 07/26/17 1328 Signed Impressions: Service Date/Time: Wednesday, July 26, 2017 13:47 - CONCLUSION: No acute disease. Conrado Ricci MD Differential Diagnosis Chest discomfort, shortness of breath: Worsening sepsis versus asthma exacerbation versus pneumonia versus worsening endocarditis/valvular regurgitation Narrative Course EKG did not show any signs of acute dysrhythmias or changes. Chest x-rays unremarkable for any signs of acute pulmonary problems. Vital signs are stable in the ER. Lab work was otherwise unremarkable. A 2-D ultrasound was done to evaluate cardiac valves and did not show any signs of acute changes. Case was discussed with Dr. Donohue. At this point, I do not see any signs of acute processes and my plan would be to release her with continue IV antibiotic treatment via PICC and follow-up with primary care physician. Return for any worsening in symptoms as needed. The plan has been discussed with her and she states understanding. Diagnosis Primary Impression: Chest pain Additional Impression: Endocarditis Referrals: [facility] Disposition: 01 DISCHARGE HOME Condition: Stable Bro Pereyra MD Jul 26, 2017 13:37
[2017-07-26 13:41] VITALS: BP_SYST 119; BP_SYST 120; BP_DIAS 53; BP_DIAS 55; PULSE 104; RESP 16; O2SAT 99
[2017-07-26 13:46] LABS: AUTOMATED NEUTROPHIL # 4.1 TH/MM3 (1.8-7.7); BASOPHIL % 0.4 % (0.0-2.0); EOSINOPHIL # 0.1 TH/MM3 (0-0.4); EOSINOPHIL % 0.8 % (0.0-4.0); HEMATOCRIT 31.6 % (35.0-46.0); HEMOGLOBIN 10.4 GM/DL (11.6-15.3); LYMPH % 38.6 % (9.0-44.0); MEAN CELL VOLUME 86.3 FL (80.0-100.0); MEAN CORPUSCULAR HEMOGLOBIN 28.5 PG (27.0-34.0); MEAN PLATELET VOLUME 7.7 FL (7.0-11.0); MONO % 6.9 % (0.0-8.0); MONOCYTE # 0.5 TH/MM3 (0-0.9); NEUT % 53.3 % (16.0-70.0); PLATELET COUNT 314 TH/MM3 (150-450); RED BLOOD COUNT 3.67 MIL/MM3 (4.00-5.30); RED CELL DISTRIBUTION WIDTH 14.7 % (11.6-17.2); WHITE BLOOD COUNT 7.7 TH/MM3 (4.0-11.0)
[2017-07-26 13:56] LABS: PROTHROMBIN TIME - PATIENT 10.5 SEC (9.8-11.6)
[2017-07-26 14:23] LABS: BICARBONATE 28.4 MEQ/L (21.0-32.0); BLOOD UREA NITROGEN 14 MG/DL (7-18); CALCIUM 8.3 MG/DL (8.5-10.1); CHLORIDE 109 MEQ/L (98-107); CREATININE 0.84 MG/DL (0.50-1.00); GLOMERULAR FILTRATION RATE 76 ML/MIN (>89); GLUCOSE,RANDOM 94 MG/DL (74-106); MAGNESIUM 1.9 MG/DL (1.5-2.5); SODIUM (NA) 142 MEQ/L (136-145)
[2017-07-26 14:27] LABS: TROPONIN I LESS THAN 0.02 NG/ML (0.02-0.05)
--- NOTE | 2017-07-26 14:33 | RADRPT ---
EXAM DATE/TIME: 07/26/2017 13:47 [facility] COMPARISON: CHEST SINGLE AP, July 01, 2017, 17:37. INDICATIONS : Chest pain and shortness of breath. MEDICAL HISTORY : Cardiovascular disease. SURGICAL HISTORY : Tubal ligation. ENCOUNTER: Initial ACUITY: 2 days PAIN SCORE: 6/10 LOCATION: Left upper chest FINDINGS: A single view of the chest demonstrates the lungs to be symmetrically aerated without evidence of mas s, infiltrate or effusion. The cardiomediastinal contours are unremarkable. Osseous structures are intact. Right PICC line remains in place. CONCLUSION: No acute disease. Conrado Ricci MD on July 26, 2017 at 14:30 Board Certified Radiologist. This report was verified electronically.
--- NOTE | 2017-07-26 14:58 | EKG ---
Date Performed: 07/26/2017 Time Performed: 13:28:16 PTAGE: 36 years EKG: Sinus rhythm NORMAL ECG PREVIOUS TRACING : 06/25/2017 21.20 No significant change from previous tracing noted. DOCTOR: Silver Donohue Interpretating Date/Time 07/26/2017 14:56:50
--- NOTE | 2017-07-26 16:09 | ECHRPT ---
Indication: follow up endocarditis CONCLUSIONS Trace mitral valve regurgitation. There is trace tricuspid valve regurgitation. Normal left ventricular size and wall thickness. The left ventricular systolic function is normal wi th an estimated ejection fraction in the range of 60-65%. Normal wall motion. BP: / HR: Rhythm: MEASUREMENTS (Male / Female) Normal Values Technical Quality:Good 2D ECHO LV Diastolic Diameter PLAX 4.8 cm 4.2 - 5.9 / 3.9 - 5.3 cm LV Systolic Diameter PLAX 3.7 cm IVS Diastolic Thickness 0.9 cm 0.6 - 1.0 / 0.6 - 0.9 cm LVPW Diastolic Thickness 0.8 cm 0.6 - 1.0 / 0.6 - 0.9 cm LV Relative Wall Thickness 0.3 RV Internal Dim ED PLAX 2.6 cm FINDINGS LEFT VENTRICLE Normal left ventricular size and wall thickness. The left ventricular systolic function is normal wi th an estimated ejection fraction in the range of 60-65%. Normal wall motion. RIGHT VENTRICLE Normal right ventricular size and systolic function. LEFT ATRIUM The left atrial size is normal. RIGHT ATRIUM The right atrial size is normal. ATRIAL SEPTUM Normal atrial septal thickness without atrial level shunting by limited color doppler interrogation. AORTA The aortic root and proximal ascending aorta are normal in size on limited imaging. MITRAL VALVE Structurally normal mitral valve. Trace mitral valve regurgitation. AORTIC VALVE Trileaflet aortic valve. No aortic valve regurgitation. TRICUSPID VALVE Structurally normal tricuspid valve. There is trace tricuspid valve regurgitation. PULMONARY VALVE The pulmonary valve is not well visualized. VESSELS The inferior vena cava is normal in size. PERICARDIUM No pericardial effusion. Silver Donohue MD (Electronically Signed) Final Date:26 July 2017 16:08
[2017-07-26] MEDS ORDERED: [UNRECOGNIZED DRUG - OTHER] IV ONE (16:45)
[2017-07-26] MEDS ORDERED: SODIUM CHLORIDE 0.9% IV ONE ×2 (16:45)
[2017-07-26] MEDS ORDERED: [UNRECOGNIZED DRUG - OTHER] IV ONE (16:45)
[2017-07-26 18:30] VITALS: BP 110/62; PULSE 99; RESP 16; O2SAT 99
== END 2017-07-26 19:47 | disposition home or self-care (01) ==
LOC: NEPC 12:49
DX: R07.9 Chest pain, unspecified (principal); R06.02 Shortness of breath; R53.83 Other fatigue; M19.90 Unspecified osteoarthritis, unspecified site; J45.909 Unspecified asthma, uncomplicated; F41.9 Anxiety disorder, unspecified; F17.210 Nicotine dependence, cigarettes, uncomplicated; Z79.899 Other long term (current) drug therapy
CPT/HCPCS: 71010; 80048; 82550; 83735; 84484; 85025; 85610; 85730; 87040; 93005; 93308; 96365; 99285; J3095

== ENCOUNTER 2017-08-24 20:26 | Emergency (ER) | payer MEDICARE ==
[~2017-08-24] VITALS: Ht 170.2 cm; Wt 62.0 kg
[~2017-08-24 20:26] MED LIST changes: -FLUC150T PO; -LACTCHW3 CHEW; -SOLU250I IV PUSH; -TRAM50TA PO
[2017-08-24 20:28] VITALS: BP 117/81; PULSE 111; RESP 16; TEMP 98.3; O2SAT 99
--- NOTE | 2017-08-24 21:05 | PD ---
HPI Chief Complaint: Injury Time Seen by Provider: 21:00 Travel History International Travel<30 days: No Contact w/Intl Traveler<30days: No Traveled to known affect area: No History of Present Illness HPI 36-year-old female presents to emergency department for evaluation of left knee pain. Patient states last night she was "fooling around" when she put her foot up on the wall and felt a pop in her lateral left knee. States it has been painful since. She is ambulatory but this exacerbates the pain. She rates it as a 10 out of 10, constant, throbbing. Denies any fever or chills. Denies any other symptoms at this time. PFSH Past Medical History Arthritis: Yes Asthma: Yes (as a child) Anxiety: Yes Depression: Yes Cancer: No Cardiovascular Problems: Yes (ENDOCARDITIS) COPD: No Diminished Hearing: No Endocrine: No Genitourinary: No Immune Disorder: No Implanted Vascular Access Dvce: Yes (Picc line) Musculoskeletal: Yes Neurologic: No Psychiatric: Yes Reproductive: No Respiratory: Yes Sleep Apnea: No ?: Not LMP: 08/21/17 : 4 Para: 4 Tubal Ligation: Yes Past Surgical History Abdominal Surgery: No Body Medical Devices: hardware in back Cardiac Surgery: No Ear Surgery: No Endocrine Surgery: No Eye Surgery: No Genitourinary Surgery: No Gynecologic Surgery: Yes (tubes tied) Oral Surgery: No Thoracic Surgery: No Other Surgery: Yes Social History Alcohol Use: Yes (occas) Tobacco Use: Yes (1PPD) Substance Use: No (marijuana;hx of heroin) Allergies-Medications (Allergen,Severity, Reaction): Coded Allergies: No Known Allergies (Verified Allergy, Unknown, 08/24/17) MRI PRECAUTION (Verified Adverse Reaction, Severe, BROKEN OFF NEEDLES IN ARM. DR. Smiley ODELL. 06/26/17 LRS, 08/24/17) Reported Meds & Prescriptions Reported Meds & Active Scripts Active Ibuprofen 600 Mg Tab 600 Mg PO Q8HR PRN Review of Systems Except as stated in HPI: all other systems reviewed are Neg Physical Exam Narrative GENERAL: Unkempt female patient, in no acute distress. SKIN: Focused skin assessment warm/dry. HEAD: Normocephalic. EYES: No scleral icterus. No injection or drainage. NECK: Supple, trachea midline. No JVD or lymphadenopathy. CARDIOVASCULAR: Tachycardic rate RESPIRATORY: Breath sounds equal bilaterally. No accessory muscle use. GASTROINTESTINAL: Abdomen soft, non-tender, nondistended. MUSCULOSKELETAL: No cyanosis area moderate edema to the anterior left knee. Tenderness elicited palpation of the anterior lateral aspect of the left knee. No obvious deformity. Deb's test is negative. No laxity with valgus or varus stress.. BACK: Nontender without obvious deformity. No CVA tenderness. Data Data Last Documented VS Vital Signs Date Time Temp Pulse Resp B/P (MAP) Pulse Ox O2 Delivery O2 Flow Rate FiO2 08/24/17 22:21 20 98 08/24/17 20:28 98.3 111 Room Air Orders Orders Knee, Complete (4vws) (08/24/17 ) Ketorolac Inj (Toradol Inj) (08/24/17 21:15) ^ Knee Immobilizer (08/24/17 21:50) Ed Discharge Order (08/24/17 21:50) Crutches (08/24/17 21:54) MDM Medical Decision Making Medical Screen Exam Complete: Yes Emergency Medical Condition: Yes Medical Record Reviewed: Yes Differential Diagnosis Knee sprain versus ligamentous injury versus joint effusion versus fracture versus dislocation Narrative Course 36-year-old female presents to emergency department for evaluation left knee pain. Patient appears without distress. Vital signs are stable. X-ray imaging confirms no acute bony abnormality however there is a joint effusion noted that is nonspecific. Patient is placed in knee immobilizer and counseled on care. She is encouraged to follow-up outpatient with an orthopedics teacher. She'll be prescribed pain control. She agrees to return immediately with any acute worsening of symptoms. Diagnosis Primary Impression: Knee pain, left Qualified Codes: M25.562 - Pain in left knee Additional Impression: Joint effusion of knee Qualified Codes: M25.462 - Effusion, left knee Referrals: Orthopaedic Surgeon Primary Care Physician Patient Instructions: General Instructions, Knee Pain (ED), Swollen Joint (ED) Additional Instructions: Ice and elevate to reduce pain and swelling Immobilizer for support Follow up with orthopedic surgery; outpatient MRI may be warranted Return to ED with acute worsening of symptoms Med/Other Pt SpecificInfo: Prescription(s) given Scripts Ibuprofen (Ibuprofen) 600 Mg Tab 600 MG PO Q8HR Y for PAIN, #30 TAB 0 Refills Prov: Laura Ward 08/24/17 Disposition: 01 DISCHARGE HOME Condition: Stable Laura Ward Aug 24, 2017 21:05
[2017-08-24] MEDS ORDERED: KETOROLAC TROMETHAMINE 60 MG/2 ML (IM) VIAL IM ONE (21:15)
--- NOTE | 2017-08-24 21:39 | RADRPT ---
EXAM DATE/TIME: 08/24/2017 21:18 [facility] COMPARISON: No previous studies available for comparison. INDICATIONS : Knee pain MEDICAL HISTORY : Cardiovascular disease. SURGICAL HISTORY : Tubal ligation. ENCOUNTER: Initial ACUITY: 1 day PAIN SCORE: 10/10 LOCATION: Left knee FINDINGS: Bones of the left knee are intact and normally aligned. A moderate-sized joint effusion is evident. R adiographic appearance of the extra-articular soft tissues within normal limits. CONCLUSION: Intact left knee. Nonspecific joint effusion. Shahid Maradiaga MD on August 24, 2017 at 21:36 Board Certified Radiologist. This report was verified electronically.
[2017-08-24] MEDS ORDERED: IBUP-232 PO (21:54)
== END 2017-08-24 22:23 | disposition home or self-care (01) ==
LOC: NEPD 20:26
DX: M25.462 Effusion, left knee (principal); M19.90 Unspecified osteoarthritis, unspecified site; J45.909 Unspecified asthma, uncomplicated; F41.9 Anxiety disorder, unspecified; F32.9 Major depressive disorder, single episode, unspecified; F17.200 Nicotine dependence, unspecified, uncomplicated
CPT/HCPCS: 73564; 96372; 99284; E0113; J1885